=== PATIENT | female | born 1990 | race Caucasian/White ===

== ENCOUNTER 2017-09-01 09:11 | Inpatient (IN) | payer MEDICARE, OTHER ==
--- NOTE | 2017-09-01 09:57 | ED ---
General Adult HPI - General Chief complaint: Recheck/Abnormal Lab/Rx Stated complaint: Med Eval Time Seen by Provider: 09/01/17 09:16 Source: RN notes reviewed, Caregiver Mode of arrival: wheelchair Limitations: altered mental status, physical limitation - History of Present Illness Initial comments: This a 27-year-old female was cognitively impaired presents to emergency room with caregiver for evaluation of change in behavior. Caregiver states over the last 2 weeks she's had progressive decline in behavior, motor and speaking skills, along with difficulty in swallowing. Patient initially thought this was related to her Prolixin injection in which a started 2 weeks prior they discontinued it and switched to Clozaril. Did have still noticed progressive decline in her symptoms. They also noted that she had a urinary tract infection at time and was treated for it. She did have lab work drawn recently and but has had no results. Case is discussed with her PCP and psychiatrists who told him that if they felt she needed evaluation to bring her to the ER. Patient had no fevers or chills she has been coughing more than usual lately. They state that she cannot get up and ambulate any more like she used to that she is not talking at this point and she used to. They also stated that she is not swallowing her food though she isn't newly get food and fluids down the noticed that she is is holding her food in her mouth. She's had no vomiting no diarrhea no rashes noted. - Related Data Home Medications Medication Instructions Recorded Confirmed Divalproex ER [Depakote ER] 1,500 mg PO HS 09/01/17 09/01/17 LORazepam [Ativan] 1 mg PO QID 09/01/17 09/01/17 Lisinopril [Zestril] 5 mg PO HS@2100 09/01/17 09/01/17 Menthol [Biofreeze] 1 applic TOPICAL QID PRN 09/01/17 09/01/17 Trimethoprim 100 mg PO HS 09/01/17 09/01/17 cloZAPine [Clozaril] 50 mg PO HS 09/01/17 09/01/17 fluvoxaMINE [Luvox] 50 mg PO DAILY 09/01/17 09/01/17 Allergies Allergy/AdvReac Type Severity Reaction Status Date / Time antipsychotics AdvReac Severe Unknown Uncoded 01/23/16 00:08 Review of Systems ROS Statement: Those systems with pertinent positive or pertinent negative responses have been documented in the HPI. ROS Other: All systems not noted in ROS Statement are negative. Past Medical History Past Medical History: Unable to Obtain Additional Past Medical History / Comment(s): cognitive impairment, developmentally delayed, neuroleptic malignant syndrome, disruptive mood History of Any Multi-Drug Resistant Organisms: Unobtainable Past Surgical History: Unable to Obtain Past Psychological History: ADD/ADHD, Depression, Schizoaffective Disorder, Schizophrenia Smoking Status: Never smoker Past Alcohol Use History: None Reported Past Drug Use History: None Reported - Past Family History Mother History Unknown: Yes Family Medical History: Unable to Obtain Father History Unknown: Yes Family Medical History: Unable to Obtain General Exam Limitations: altered mental status, physical limitation General appearance: alert, in no apparent distress Head exam: Present: atraumatic, normocephalic, normal inspection Eye exam: Present: normal appearance, PERRL, EOMI. Absent: scleral icterus, conjunctival injection, periorbital swelling ENT exam: Present: normal exam, normal oropharynx, mucous membranes moist Neck exam: Present: normal inspection, full ROM. Absent: tenderness, meningismus, lymphadenopathy Respiratory exam: Present: normal lung sounds bilaterally. Absent: respiratory distress, wheezes, rales, rhonchi, stridor Cardiovascular Exam: Present: normal rhythm, tachycardia, normal heart sounds. Absent: systolic murmur, diastolic murmur, rubs, gallop, clicks GI/Abdominal exam: Present: soft, normal bowel sounds. Absent: distended, tenderness, guarding, rebound, rigid Back exam: Absent: CVA tenderness (R), CVA tenderness (L) Neurological exam: Present: alert. Absent: oriented X3 Skin exam: Present: warm, dry, intact, normal color. Absent: rash Course Vital Signs 09/01/17 09:12 Temperature 97.0 F L Pulse Rate 118 H Respiratory 20 Rate Blood Pressure 121/67 O2 Sat by Pulse 100 Oximetry Medical Decision Making - Medical Decision Making 27-year-old female presented for decline in mental and physical capacity. Patient's found to have bilateral pneumonia. Patient will be admitted to the hospital at this time. - Lab Data Result diagrams: 09/01/17 10:20 09/01/17 10:20 Lab Results 09/01/17 09/01/17 09/01/17 Range/Units 10:20 10:20 10:20 WBC 9.6 (3.8-10.6) k/uL RBC 4.14 (3.80-5.40) m/uL Hgb 13.4 (11.4-16.0) gm/dL Hct 39.8 (34.0-46.0) % MCV 96.0 (80.0-100.0) fL MCH 32.4 (25.0-35.0) pg MCHC 33.7 (31.0-37.0) g/dL RDW 12.7 (11.5-15.5) % Plt Count 202 (150-450) k/uL Neutrophils % 76 % Lymphocytes % 15 % Monocytes % 8 % Eosinophils % 0 % Basophils % 0 % Neutrophils # 7.3 (1.3-7.7) k/uL Lymphocytes # 1.4 (1.0-4.8) k/uL Monocytes # 0.8 (0-1.0) k/uL Eosinophils # 0.0 (0-0.7) k/uL Basophils # 0.0 (0-0.2) k/uL ESR Cancelled PT (9.0-12.0) sec INR (<1.2) APTT (22.0-30.0) sec Sodium 138 (137-145) mmol/L Potassium 4.7 (3.5-5.1) mmol/L Chloride 101 (98-107) mmol/L Carbon Dioxide 20 L (22-30) mmol/L Anion Gap 17 mmol/L BUN 10 (7-17) mg/dL Creatinine 0.54 (0.52-1.04) mg/dL Est GFR (CKD-EPI)AfAm >90 (>60 ml/min/1.73 sqM) Est GFR (CKD-EPI)NonAf >90 (>60 ml/min/1.73 sqM) Glucose 147 H (74-99) mg/dL Calcium 9.5 (8.4-10.2) mg/dL Magnesium 2.0 (1.6-2.3) mg/dL Total Bilirubin 0.5 (0.2-1.3) mg/dL AST 68 H (14-36) U/L ALT 79 H (9-52) U/L Alkaline Phosphatase 99 (38-126) U/L Ammonia (<30) umol/L Total Creatine Kinase 57 (30-135) U/L CK-MB (CK-2) 0.3 (0.0-2.4) ng/mL CK-MB (CK-2) Rel Index 0.5 Troponin I <0.012 (0.000-0.034) ng/mL C-Reactive Protein 61.5 H (<10.0) mg/L Total Protein 6.8 (6.3-8.2) g/dL Albumin 3.9 (3.5-5.0) g/dL Lipase 81 (23-300) U/L Urine Color Urine Appearance (Clear) Urine pH (5.0-8.0) Ur Specific [place] (1.001-1.035) Urine Protein (Negative) Urine Glucose (UA) (Negative) Urine Ketones (Negative) Urine Blood (Negative) Urine Nitrite (Negative) Urine Bilirubin (Negative) Urine Urobilinogen (<2.0) mg/dL Ur Leukocyte Esterase (Negative) Urine RBC (0-5) /hpf Urine WBC (0-5) /hpf Ur Squamous Epith Cells (0-4) /hpf Urine Mucus (None) /hpf 09/01/17 09/01/17 09/01/17 Range/Units 10:20 10:20 11:50 WBC (3.8-10.6) k/uL RBC (3.80-5.40) m/uL Hgb (11.4-16.0) gm/dL Hct (34.0-46.0) % MCV (80.0-100.0) fL MCH (25.0-35.0) pg MCHC (31.0-37.0) g/dL RDW (11.5-15.5) % Plt Count (150-450) k/uL Neutrophils % % Lymphocytes % % Monocytes % % Eosinophils % % Basophils % % Neutrophils # (1.3-7.7) k/uL Lymphocytes # (1.0-4.8) k/uL Monocytes # (0-1.0) k/uL Eosinophils # (0-0.7) k/uL Basophils # (0-0.2) k/uL ESR PT 11.5 (9.0-12.0) sec INR 1.2 H (<1.2) APTT 19.7 L (22.0-30.0) sec Sodium (137-145) mmol/L Potassium (3.5-5.1) mmol/L Chloride (98-107) mmol/L Carbon Dioxide (22-30) mmol/L Anion Gap mmol/L BUN (7-17) mg/dL Creatinine (0.52-1.04) mg/dL Est GFR (CKD-EPI)AfAm (>60 ml/min/1.73 sqM) Est GFR (CKD-EPI)NonAf (>60 ml/min/1.73 sqM) Glucose (74-99) mg/dL Calcium (8.4-10.2) mg/dL Magnesium (1.6-2.3) mg/dL Total Bilirubin (0.2-1.3) mg/dL AST (14-36) U/L ALT (9-52) U/L Alkaline Phosphatase (38-126) U/L Ammonia 13 (<30) umol/L Total Creatine Kinase (30-135) U/L CK-MB (CK-2) (0.0-2.4) ng/mL CK-MB (CK-2) Rel Index Troponin I (0.000-0.034) ng/mL C-Reactive Protein (<10.0) mg/L Total Protein (6.3-8.2) g/dL Albumin (3.5-5.0) g/dL Lipase (23-300) U/L Urine Color Light Yellow Urine Appearance Clear (Clear) Urine pH 7.0 (5.0-8.0) Ur Specific [place] 1.008 (1.001-1.035) Urine Protein Negative (Negative) Urine Glucose (UA) Negative (Negative) Urine Ketones Negative (Negative) Urine Blood Small H (Negative) Urine Nitrite Negative (Negative) Urine Bilirubin Negative (Negative) Urine Urobilinogen <2.0 (<2.0) mg/dL Ur Leukocyte Esterase Negative (Negative) Urine RBC 1 (0-5) /hpf Urine WBC 1 (0-5) /hpf Ur Squamous Epith Cells 1 (0-4) /hpf Urine Mucus Rare H (None) /hpf Disposition Clinical Impression: Bilateral pneumonia Disposition: ADMITTED IP TO THIS HOSP Condition: Stable Referrals: Adrianna Deng MD [Primary Care Provider] - 1-2 days
[2017-09-01 10:43] LABS: Basophils % (A) 0 %; Eosinophils % (A) 0 %; HCT 39.8 % (34.0-46.0); HGB 13.4 gm/dL (11.4-16.0); Lymphocytes # (A) 1.4 k/uL (1.0-4.8); Lymphocytes % (A) 15 %; MCH 32.4 pg (25.0-35.0); MCHC 33.7 g/dL (31.0-37.0); Mean Platelet Volume 7.5; Monocytes # (A) 0.8 k/uL (0-1.0); Monocytes % (A) 8 %; Neutrophils # (A) 7.3 k/uL (1.3-7.7); Neutrophils % (A) 76 %; Platelet Count 202 k/uL (150-450); RBC 4.14 m/uL (3.80-5.40); RDW 12.7 % (11.5-15.5); WBC 9.6 k/uL (3.8-10.6)
[2017-09-01 10:51] LABS: ALT 79 U/L (9-52); AST 68 U/L (14-36); Albumin 3.9 g/dL (3.5-5.0); Alkaline Phosphatase 99 U/L (38-126); Anion Gap 17 mmol/L; Blood Urea Nitrogen 10 mg/dL (7-17); C Reactive Protein 61.5 mg/L (<10.0); Calcium 9.5 mg/dL (8.4-10.2); Carbon Dioxide 20 mmol/L (22-30); Chloride 101 mmol/L (98-107); Glucose 147 mg/dL (74-99); Lipase 81 U/L (23-300); Potassium 4.7 mmol/L (3.5-5.1); Sodium 138 mmol/L (137-145); Total Bilirubin 0.5 mg/dL (0.2-1.3); Total Protein 6.8 g/dL (6.3-8.2)
[2017-09-01 10:53] LABS: INR 1.2 (<1.2); Prothrombin Time 11.5 sec (9.0-12.0)
[2017-09-01 11:00] LABS: Partial Thromboplastin Time 19.7 sec (22.0-30.0)
--- NOTE | 2017-09-01 11:21 | CT ---
EXAMINATION TYPE: CT brain wo con DATE OF EXAM: 09/01/2017 COMPARISON: NONE HISTORY: Patient complains of whole body tremors, whole body weakness, and shows signs of altered men selena status. CT DLP: 786.3 mGycm. Automated Exposure Control for Dose Reduction was Utilized. TECHNIQUE: CT scan of the head is performed without contrast. FINDINGS: There is no acute intracranial hemorrhage, mass effect, or midline shift identified. The ventricles and sulci are within normal limits in size. The globes are intact and the visualized sin uses are clear. IMPRESSION: No acute intracranial hemorrhage, mass effect, or midline shift is seen. Correlate with MRI as clinically warranted.
[2017-09-01 11:28] LABS: Creatine Kinase 57 U/L (30-135)
--- NOTE | 2017-09-01 11:31 | XR ---
EXAMINATION TYPE: XR chest 2V DATE OF EXAM: 09/01/2017 COMPARISON: NONE TECHNIQUE: PA and lateral views submitted. HISTORY: Not feeling well FINDINGS: Vague patchy infiltrates in the perihilar lower lobe areas bilaterally with prominence of the interst itium. No obvious pneumothorax. Heart size normal. Limited inspiration may account for similar findin g.. IMPRESSION: 1. Patchy bilateral perihilar and lower lobe interstitial prominence could be associated with interst itial pneumonitis or pneumonia. Atypical pneumonia in the differential diagnosis. Venous congestion f elt less likely correlate clinically.
[2017-09-01 11:41] LABS: Creatine Kinase MB 0.3 ng/mL (0.0-2.4); Troponin I <0.012 ng/mL (0.000-0.034)
[2017-09-01 12:07] LABS: Appearance,Urine Clear (Clear); Bilirubin,Urine Negative (Negative); Blood,Urine Small (Negative); Color,Urine Light Yellow; Glucose,Urine (UA) Negative (Negative); Ketones,Urine Negative (Negative); Leukocyte Esterase,Urine Negative (Negative); Mucus,Urine Rare /hpf; Nitrite,Urine Negative (Negative); Protein,Urine Negative (Negative); RBC,Urine 1 /hpf (0-5); Specific Gravity,Urine 1.008 (1.001-1.035); Squamous Epithelial Cell,Urine 1 /hpf (0-4); Urobilinogen,Urine <2.0 mg/dL (<2.0); WBC,Urine 1 /hpf (0-5)
[2017-09-01] MEDS ORDERED: PNEUMONIA PROTOCOL UTILIZED 1 EACH MISC PO PRN (13:08)
[2017-09-01] MEDS ORDERED: PIPERACILLIN-TAZOBACTAM 3.375 GM in DEXTROSE/WATER 1 50ML.BAG IVPB STA (13:08)
[2017-09-01] MEDS ORDERED: LEVOFLOXACIN 750MG-D5W PMX 750 MG in DEXTROSE/WATER 1 150ML.BAG IVPB STA (13:08)
[2017-09-01] MEDS ORDERED: METHYL SALICYLATE/MENTHOL CREAM 5 OZ TOPICAL PRN (13:09)
[2017-09-01] MEDS ORDERED: LORazepam 1 MG TAB PO STA (14:03)
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
[2017-09-01] MEDS: LORazepam 1 MG TAB PO SCH ×2 (18:45→22:26)
[2017-09-01] MEDS ORDERED: DIVALPROEX ER 500 MG TAB.ER.24H PO SCH (21:00)
[2017-09-01] MEDS: SODIUM CHLORIDE 0.9% 1,000 ML IV SCH (22:18)
[2017-09-01] MEDS: cloZAPine 25 MG TAB PO SCH (22:26)
[2017-09-01] MEDS: LISINOPRIL 5 MG TAB PO SCH (22:26)
[2017-09-01] MEDS: ACETAMINOPHEN TAB 325 MG TAB PO PRN (23:03)
[2017-09-01] MEDS: PIPERACILLIN-TAZOBACTAM 3.375 GM in DEXTROSE/WATER 1 50ML.BAG IVPB SCH (23:33)
[2017-09-02] MEDS: SODIUM CHLORIDE 0.9% 1,000 ML IV SCH ×3 (06:34→21:23)
--- NOTE | 2017-09-02 07:36 | XR ---
EXAMINATION TYPE: XR chest 2V DATE OF EXAM: 09/02/2017 COMPARISON: 09/01/2017 HISTORY: Chest pain TECHNIQUE: Frontal and lateral views of the chest are obtained. FINDINGS: Linear atelectasis left perihilar region. Mild patchy density left lower lobe may reflect additional atelectasis and/or infiltrate. No evidence for pneumothorax. No pleural effusion. The cardiac silhouette size is within normal limits. The osseous structures are grossly intact. IMPRESSION: 1. Linear atelectasis left perihilar region. Mild patchy density left lower lobe may reflect additio nal atelectasis and/or infiltrate.
[2017-09-02 07:50] LABS: HCT 39.4 % (34.0-46.0); HGB 12.9 gm/dL (11.4-16.0); MCH 31.6 pg (25.0-35.0); MCHC 32.7 g/dL (31.0-37.0); MCV 96.4 fL (80.0-100.0); Mean Platelet Volume 7.7; Platelet Count 227 k/uL (150-450); RBC 4.08 m/uL (3.80-5.40); RDW 12.8 % (11.5-15.5); WBC 8.2 k/uL (3.8-10.6)
[2017-09-02] MEDS: LORazepam 1 MG TAB PO SCH ×4 (07:59→21:51)
[2017-09-02] MEDS: PIPERACILLIN-TAZOBACTAM 3.375 GM in DEXTROSE/WATER 1 50ML.BAG IVPB SCH ×2 (07:59→17:03)
[2017-09-02 08:12] LABS: Anion Gap 15 mmol/L; Blood Urea Nitrogen 7 mg/dL (7-17); Carbon Dioxide 20 mmol/L (22-30); Chloride 106 mmol/L (98-107); Glucose 105 mg/dL (74-99); Sodium 141 mmol/L (137-145)
[2017-09-02 08:13] LABS: Potassium 4.2 mmol/L (3.5-5.1)
--- NOTE | 2017-09-02 11:08 | P.PN ---
Subjective 27-year-old female admitted for lethargy aspiration patient is Zosyn patient has toxic levels of Depakote and Depakote and repeat levels will be obtained today patient is excessively drowsy and sleepy because of Ativan she is receiving. Psychiatric was consulted I'll let psychiatric titrate these medications. Patient was having significant side effects from her psychiatric medications. Review of systems: I'm unable to obtain. Objective - Vital Signs Vital signs: Vital Signs Temp 98.4 F 09/02/17 07:38 Pulse 104 H 09/02/17 07:38 Resp 18 09/02/17 07:38 BP 126/73 09/02/17 07:38 Pulse Ox 97 09/02/17 07:38 Intake & Output 09/01/17 09/02/17 09/02/17 18:59 06:59 18:59 Intake Total 250 Balance 250 Weight 142.428 kg Intake: Intake, IV Titration 250 Amount Sodium Chloride 0.9% 1, 250 000 ml @ 100 mls/hr IV . Q10H [facility] Rx#:[id number] Other: Voiding Method Toilet Toilet Diaper Incontinent # Voids 2 - Exam PHYSICAL EXAMINATION: GENERAL: The patient is nonverbal drowsy and sleepy HEENT: Pupils are round and equally reacting to light. EOMI. No scleral icterus. No conjunctival pallor. Normocephalic, atraumatic. No pharyngeal erythema. No thyromegaly. CARDIOVASCULAR: S1 and S2 present. No murmurs, rubs, or gallops. PULMONARY: Diminished breath sounds no wheezing or crackles were appreciated ABDOMEN: Soft, nontender, nondistended, normoactive bowel sounds. No palpable organomegaly. MUSCULOSKELETAL: No joint swelling or deformity. EXTREMITIES: No cyanosis, clubbing, or pedal edema. NEUROLOGICAL: Drowsy and sleepy does not appear to have any focal deficits which are new SKIN: No rashes. - Labs CBC & Chem 7: 09/02/17 07:28 09/02/17 07:28 Labs: Abnormal Lab Results - Last 24 Hours (Table) 09/01/17 09/01/17 09/01/17 Range/Units 10:20 10:20 10:20 INR 1.2 H (<1.2) APTT 19.7 L (22.0-30.0) sec Carbon Dioxide 20 L (22-30) mmol/L Creatinine (0.52-1.04) mg/dL Glucose 147 H (74-99) mg/dL AST 68 H (14-36) U/L ALT 79 H (9-52) U/L C-Reactive Protein 61.5 H (<10.0) mg/L Urine Blood (Negative) Urine Mucus (None) /hpf Valproic Acid 112.7 H* ug/mL 09/01/17 09/02/17 Range/Units 11:50 07:28 INR (<1.2) APTT (22.0-30.0) sec Carbon Dioxide 20 L (22-30) mmol/L Creatinine 0.45 L (0.52-1.04) mg/dL Glucose 105 H (74-99) mg/dL AST (14-36) U/L ALT (9-52) U/L C-Reactive Protein (<10.0) mg/L Urine Blood Small H (Negative) Urine Mucus Rare H (None) /hpf Valproic Acid ug/mL Assessment and Plan Plan: Possible valproic acid toxicity: Patient is on valproic acid for her mental health issues valproic acid will be held and patient was started on IV fluids and will consult psychiatry as mentioned above. -Possible aspiration: Possibility of aspiration pneumonitis will continue antibiotics for today will not require antibiotics upon discharge she probably has chemical pneumonitis. Patient will be nothing by mouth until speech therapy evaluation and formal bedside swallow evaluation -Developmental delay and mental retardation -Hypertension continue with lisinopril -Schizoaffective disorder
[2017-09-02] MEDS ORDERED: LEVOFLOXACIN 750MG-D5W PMX 750 MG in DEXTROSE/WATER 1 150ML.BAG IVPB SCH (14:00)
--- NOTE | 2017-09-02 15:19 | P.CN ---
Psychiatric Consult - . Consult date: 09/02/17 Consult:: 09/02/17 14:53 Identification: Patient is a 27-year-old female who was brought into the emergency room from the [facility] due to a change in her behavior. Reason for Consult: Medication management History of Present Illness: Patient's chart was reviewed, patient was interviewed there were no family members present. Patient's care was reviewed with the [facility] liaison. Patient was last on our psychiatric unit in 2015 and most of the information from this evaluation is obtained from that. Per the records from [facility] patient had been placed on Prolixin decanoate, the dose was increased to 50 mg on June 14 and was given every 2 weeks for last injection being given on 08/09/2017, I am unaware of why it was not continued and she was begun on Clozaril 25 mg for one week increase to 50 mg. Patient was also on Luvox 50 mg and is unclear to me when this was begun. Patient was also on Depakote 1500 mg of extended release and I do not know when this was begun either. Patient was also on Ativan 1 mg 4 times a day. Patient is a poor historian she is unable to give me any historical information or participate in the evaluation and has a diagnosis per [facility] unspecified schizophrenia spectrum and other psychotic disorder, intellectual disability, mild. Patient has a guardian and is living in an [facility]. Pertinent admission in 2015 to our psychiatric unit the patient had a history of intellectual disability as well as disruptive mood and had been placed on multiple antipsychotics in the past with a history of neuroleptic malignant syndrome, the details of this I am unaware of. Patient on her last admission in 2015 was discharged on Trileptal and Ativan. Patient is followed by [facility] in [facility]. Past Psychiatric History: Patient has 2 prior psychiatric admissions to this hospital, I am unaware of any other admissions. Patient most recent medications of been Ativan 1 mg 4 times a day, Clozaril 50 mg at bedtime, Depakote extended release 1500 mg at bedtime and Luvox 50 mg every morning. Patient had been on Prolixin long-acting injectable last dose given on August 09. Past Medical/Surgical History: Patient unable to give me a history Family History: Unable to obtain Social History: Patient lives in a retirement, [facility], further information regarding her social history is unavailable. Substance Use History: Unable to obtain Legal History: Unable to obtain Mental status: Appearance/Attitude: Patient is lying in a hospital bed, holding 2 stuffed animals and watching television, she makes eye contact Behavior: Patient is not exhibiting any psychomotor agitation or retardation Speech/Language: Patient responded to some questions with brief 1 or 2 word answers, she spoke in a very soft voice Thought Process: Unable to assess as the patient responded to only several questions with 1 or 2 word answers Thought Content: Unable to assess Suicidal/Homicidal Ideation: Unable to assess Sensorium/Cognition: Patient responded to her name, she was alert, further testing was not performed, patient has a history of intellectual disability, mild Mood/Affect: Patient did not appear agitated, she was smiling Insight/Judgment: unable to assess Assessment: patient was brought to the hospital from the [facility] where she has been residing with a report of a UTI that he been treated as well as 2 week change in her behavior. They report over 2 weeks a decrease in her ability to swallow and eat or drink, a decrease in her ability to ambulate as well as she stopped talking. Patient is unable to give a history responding to some of my questions with 1 or 2 word answers, these were in relation to the stuffed animals that she had with her, the rest of the history is obtained from the medical record and from speaking with the [facility] liaison regarding her most recent medications. Patient is noted in the chart to have had a history of neuroleptic malignant syndrome I am unaware of the details or how or when this was diagnosed. Patient was most recently on Clozaril 50 mg but that had just been started, she prior to this was on Prolixin decanoate 50 mg every 2 weeks her last injection on August 09. Patient was also taking Luvox and Depakote. Luvox can certainly increase Depakote levels as her Depakote level on admission was elevated. There is no evidence of an elevation in her CPK and she does does not have a persistently elevated temperature so I do not feel that neuroleptic malignant syndrome is the cause of her most recent behavioral changes. It is unclear to me if the difficulties that she had with her swallowing, motor skills may have been secondary to side effects from the Prolixin. Clozaril is less likely to cause extrapyramidal or dystonic symptoms , and patients who have had a history of neuroleptic malignant syndrome can be started on this medication at low doses and titrated in a very slow fashion. Patient did not exhibit any aggressive or agitated behavior when I spoke with her, per the record the patient did eat her lunch without assistance. Diagnosis: Unspecified psychotic disorder, intellectual disability, mild per history Plan: I would agree with discontinuing the Depakote, she can continue on Clozaril 50 mg at bedtime, Luvox 50 mg in the morning and the Ativan 1 mg 4 times a day, patient should return to [facility] to be assessed by the psychiatrist there to see if any further adjustments in her medications need to be made after she is discharged. I see no need to add any other medications at this time nor do I see a need to increase the Clozaril or the Luvox dose. Patient does not require an inpatient psychiatric admission. I will sign off the case, I would recommend that the patient on discharge have an appointment as soon as possible with the psychiatrist at [facility] to assess whether her medications need further adjustment or not. On discharge the patient can certainly return to her prior living situation, [facility]. If there are any further questions or concerns please don't hesitate to contact me. 09/02/17 14:54 09/02/17 15:04 09/02/17 15:06 09/02/17 15:12 09/02/17 15:14
[2017-09-02] MEDS: HEPARIN SODIUM,PORCINE 5,000 UNIT/ML 1 ML VIAL SQ SCH ×2 (17:13→23:56)
[2017-09-02] MEDS: cloZAPine 25 MG TAB PO SCH (20:01)
[2017-09-02] MEDS: LISINOPRIL 5 MG TAB PO SCH (20:01)
[2017-09-03] MEDS: ACETAMINOPHEN TAB 325 MG TAB PO PRN (00:08)
[2017-09-03] MEDS: SODIUM CHLORIDE 0.9% 1,000 ML IV SCH ×2 (08:26→20:06)
[2017-09-03] MEDS: HEPARIN SODIUM,PORCINE 5,000 UNIT/ML 1 ML VIAL SQ SCH ×2 (08:34→17:54)
[2017-09-03] MEDS: LORazepam 1 MG TAB PO SCH ×4 (08:34→21:38)
[2017-09-03] MEDS: AMOXIC-POT CLAV 875-125MG 1 EACH TAB PO SCH ×2 (11:35→20:08)
--- NOTE | 2017-09-03 14:29 | P.PN ---
Subjective 27-year-old female admitted for lethargy aspiration patient is Zosyn patient has toxic levels of Depakote and Depakote and repeat levels will be obtained today patient is excessively drowsy and sleepy because of Ativan she is receiving. Psychiatric was consulted I'll let psychiatric titrate these medications. Patient was having significant side effects from her psychiatric medications. 09/03/2017 Patient is a much less lethargic does have much most and but failed bedside swallow eval. Patient did a low-grade fever and tachycardic because of which patient was started on Augmentin oral patient can take oral medications, honey thickened liquids Review of systems: I'm unable to obtain. Objective - Vital Signs Vital signs: Vital Signs Temp 99.9 F H 09/03/17 07:10 Pulse 119 H 09/03/17 07:10 Resp 20 09/03/17 07:10 BP 159/81 09/03/17 07:10 Pulse Ox 96 09/03/17 07:10 Intake & Output 09/02/17 09/03/17 09/03/17 18:59 06:59 18:59 Intake Total 850 1660 Balance 850 1660 Weight 142.428 kg Intake: Intake, IV Titration 850 Amount Piperacillin-Tazobactam 3 50 .375 gm In Dextrose/Water 1 50ml.bag @ 12.5 mls/hr IVPB Q8HR CORKY Rx#: [id number] Sodium Chloride 0.9% 1, 800 000 ml @ 100 mls/hr IV . Q10H CORKY Rx#:[id number] Oral 1660 Other: Voiding Method Toilet Toilet Diaper Diaper Incontinent Incontinent # Voids 2 - Exam PHYSICAL EXAMINATION: GENERAL: patient is much less lethargic HEENT: Pupils are round and equally reacting to light. EOMI. No scleral icterus. No conjunctival pallor. Normocephalic, atraumatic. No pharyngeal erythema. No thyromegaly. CARDIOVASCULAR: S1 and S2 present. No murmurs, rubs, or gallops. PULMONARY: Diminished breath sounds no wheezing or crackles were appreciated ABDOMEN: Soft, nontender, nondistended, normoactive bowel sounds. No palpable organomegaly. MUSCULOSKELETAL: No joint swelling or deformity. EXTREMITIES: No cyanosis, clubbing, or pedal edema. NEUROLOGICAL: Drowsy and sleepy does not appear to have any focal deficits which are new SKIN: No rashes. - Labs CBC & Chem 7: 09/02/17 07:28 09/02/17 07:28 Labs: Microbiology - Last 24 Hours (Table) 09/01/17 18:20 Blood Culture - Preliminary Blood No Growth after 24 hours 09/01/17 17:40 Blood Culture - Preliminary Blood No Growth after 24 hours Assessment and Plan Plan: Possible valproic acid toxicity: patient's valproic acid levels came down still be tired and lethargic much improved compared to admission and appreciate psychiatric recommendations. -Possible aspiration: Possibility of aspiration pneumonitis , because of low- grade fever and tachycardia patient will be started on antibiotics Development delay and mental retardation -Hypertension continue with lisinopril -Schizoaffective disorder
[2017-09-03 14:39] LABS: Glucose,Whole Blood 151 mg/dL (75-99)
--- NOTE | 2017-09-03 15:34 | XR ---
EXAMINATION TYPE: XR chest 1V portable DATE OF EXAM: 09/03/2017 COMPARISON: 09/02/2017 HISTORY: Chest pain TECHNIQUE: Single frontal view of the chest is obtained. FINDINGS: Resolution discoid atelectasis left perihilar region. Increased patchy density right lower lobe may r eflect developing infiltrate. The cardiac silhouette size is within normal limits. The osseous structures are intact. IMPRESSION: 1. Resolution discoid atelectasis left perihilar region. Increased patchy density right lower lobe m ay reflect developing infiltrate.
[2017-09-03 15:54] LABS: Appearance,Urine Clear (Clear); Bilirubin,Urine Negative (Negative); Blood,Urine Small (Negative); Color,Urine Yellow; Glucose,Urine (UA) Negative (Negative); Ketones,Urine Negative (Negative); Leukocyte Esterase,Urine Trace (Negative); Mucus,Urine Rare /hpf; Nitrite,Urine Negative (Negative); PH, Urine 6.5 (5.0-8.0); Protein,Urine Negative (Negative); RBC,Urine 2 /hpf (0-5); Specific Gravity,Urine 1.014 (1.001-1.035); Squamous Epithelial Cell,Urine 6 /hpf (0-4); WBC,Urine 1 /hpf (0-5)
[2017-09-03] MEDS: cloZAPine 25 MG TAB PO SCH (20:08)
[2017-09-03] MEDS: LISINOPRIL 5 MG TAB PO SCH (20:08)
[2017-09-04] MEDS: SODIUM CHLORIDE 0.9% 1,000 ML IV SCH ×2 (00:17→08:14)
[2017-09-04] MEDS: HEPARIN SODIUM,PORCINE 5,000 UNIT/ML 1 ML VIAL SQ SCH ×4 (00:17→23:24)
[2017-09-04] MEDS: ACETAMINOPHEN TAB 325 MG TAB PO PRN ×2 (06:04→22:26)
[2017-09-04] MEDS: LORazepam 1 MG TAB PO SCH (08:14)
[2017-09-04] MEDS: AMOXIC-POT CLAV 875-125MG 1 EACH TAB PO SCH ×2 (08:14→20:28)
--- NOTE | 2017-09-04 09:18 | P.PN ---
Subjective 27-year-old female admitted for lethargy aspiration patient is Zosyn patient has toxic levels of Depakote and Depakote and repeat levels will be obtained today patient is excessively drowsy and sleepy because of Ativan she is receiving. Psychiatric was consulted I'll let psychiatric titrate these medications. Patient was having significant side effects from her psychiatric medications. 09/03/2017 Patient is a much less lethargic does have much most and but failed bedside swallow eval. Patient did a low-grade fever and tachycardic because of which patient was started on Augmentin oral patient can take oral medications, honey thickened liquids 09/04/2017 Patient is excessively drowsy because of the scheduled Ativan which will be made when necessary, when patient is more awake we'll do the swallow evaluation. Review of systems: I'm unable to obtain. Objective - Vital Signs Vital signs: Vital Signs Temp 99.7 F H 09/04/17 06:55 Pulse 121 H 09/04/17 06:55 Resp 20 09/04/17 06:55 BP 119/58 09/04/17 06:55 Pulse Ox 95 09/04/17 06:55 Intake & Output 09/03/17 09/04/17 09/04/17 18:59 06:59 18:59 Intake Total 640 Balance 640 Weight 142.428 kg Intake: Oral 640 Other: Voiding Method Toilet Toilet Toilet Diaper Diaper Diaper Incontinent Incontinent Incontinent # Voids 2 2 - Exam PHYSICAL EXAMINATION: GENERAL: patient is much less lethargic HEENT: Pupils are round and equally reacting to light. EOMI. No scleral icterus. No conjunctival pallor. Normocephalic, atraumatic. No pharyngeal erythema. No thyromegaly. CARDIOVASCULAR: S1 and S2 present. No murmurs, rubs, or gallops. PULMONARY: Diminished breath sounds basilar crackles ABDOMEN: Soft, nontender, nondistended, normoactive bowel sounds. No palpable organomegaly. MUSCULOSKELETAL: No joint swelling or deformity. EXTREMITIES: No cyanosis, clubbing, or pedal edema. NEUROLOGICAL: Drowsy and sleepy does not appear to have any focal deficits which are new SKIN: No rashes. - Labs CBC & Chem 7: 09/02/17 07:28 09/02/17 07:28 Labs: Abnormal Lab Results - Last 24 Hours (Table) 09/03/17 09/03/17 Range/Units 14:37 15:15 POC Glucose (mg/dL) 151 H (75-99) mg/dL Urine Blood Small H (Negative) Ur Leukocyte Esterase Trace H (Negative) Ur Squamous Epith Cells 6 H (0-4) /hpf Urine Mucus Rare H (None) /hpf Microbiology - Last 24 Hours (Table) 09/01/17 18:20 Blood Culture - Preliminary Blood No Growth after 48 hours 09/01/17 17:40 Blood Culture - Preliminary Blood No Growth after 48 hours Assessment and Plan Plan: Possible valproic acid toxicity: patient's valproic acid levels came down still be tired and lethargic much improved compared to admission and appreciate psychiatric recommendations. Ativan will be made when necessary -Possible aspiration: Possibility of aspiration pneumonitis , because of low- grade fever and tachycardia patient is started on Augmentin Development delay and mental retardation -Hypertension continue with lisinopril -Schizoaffective disorder
[2017-09-04] MEDS: LORazepam 1 MG TAB PO PRN (16:05)
[2017-09-04] MEDS: LISINOPRIL 5 MG TAB PO SCH (20:28)
[2017-09-04] MEDS: cloZAPine 25 MG TAB PO SCH (20:28)
[2017-09-05] MEDS: SODIUM CHLORIDE 0.9% 1,000 ML IV SCH ×3 (02:47→20:30)
[2017-09-05] MEDS: LORazepam 1 MG TAB PO PRN (07:04)
[2017-09-05] MEDS: AMOXIC-POT CLAV 875-125MG 1 EACH TAB PO SCH ×2 (08:31→20:04)
[2017-09-05] MEDS: HEPARIN SODIUM,PORCINE 5,000 UNIT/ML 1 ML VIAL SQ SCH ×2 (08:31→16:31)
--- NOTE | 2017-09-05 10:16 | P.PN ---
Subjective 27-year-old female admitted for lethargy aspiration patient is Zosyn patient has toxic levels of Depakote and Depakote and repeat levels will be obtained today patient is excessively drowsy and sleepy because of Ativan she is receiving. Psychiatric was consulted I'll let psychiatric titrate these medications. Patient was having significant side effects from her psychiatric medications. 09/03/2017 Patient is a much less lethargic does have much most and but failed bedside swallow eval. Patient did a low-grade fever and tachycardic because of which patient was started on Augmentin oral patient can take oral medications, honey thickened liquids 09/04/2017 Patient is excessively drowsy because of the scheduled Ativan which will be made when necessary, when patient is more awake we'll do the swallow evaluation. 09/05/2017 Patient remains tachycardic will obtain EKG, TSH and d-dimer and if patient remains otalgic unsure of the etiology patient doesn't appear to be septic. D- dimer is elevated will obtain computed tomography scan of the chest to rule out pulmonary embolism. Patient probably can be discharged tomorrow to back to her assisted living of all the workup is negative. Review of systems: I'm unable to obtain. Objective - Vital Signs Vital signs: Vital Signs Temp 98.8 F 09/05/17 08:05 Pulse 137 H 09/05/17 08:05 Resp 26 H 09/05/17 08:05 BP 133/103 09/05/17 08:05 Pulse Ox 99 09/05/17 08:05 Intake & Output 09/04/17 09/05/17 09/05/17 18:59 06:59 18:59 Other: Voiding Method Toilet Toilet Diaper Diaper Incontinent Incontinent # Voids 3 1 1 - Exam PHYSICAL EXAMINATION: GENERAL: patient is much less lethargic HEENT: Pupils are round and equally reacting to light. EOMI. No scleral icterus. No conjunctival pallor. Normocephalic, atraumatic. No pharyngeal erythema. No thyromegaly. CARDIOVASCULAR: S1 and S2 present. No murmurs, rubs, or gallops. PULMONARY: Diminished breath sounds basilar crackles ABDOMEN: Soft, nontender, nondistended, normoactive bowel sounds. No palpable organomegaly. MUSCULOSKELETAL: No joint swelling or deformity. EXTREMITIES: No cyanosis, clubbing, or pedal edema. NEUROLOGICAL: Drowsy and sleepy does not appear to have any focal deficits which are new SKIN: No rashes. - Labs CBC & Chem 7: 09/02/17 07:28 09/02/17 07:28 Labs: Microbiology - Last 24 Hours (Table) 09/01/17 18:20 Blood Culture - Preliminary Blood No Growth after 72 hours 09/01/17 17:40 Blood Culture - Preliminary Blood No Growth after 72 hours Assessment and Plan Plan: Possible valproic acid toxicity: patient's valproic acid levels came down still be tired and lethargic much improved compared to admission and appreciate psychiatric recommendations. Ativan will be made when necessary -Possible aspiration: Possibility of aspiration pneumonitis , because of low- grade fever and tachycardia patient is started on Augmentin Development delay and mental retardation -Hypertension continue with lisinopril -Schizoaffective disorder -Tachycardia: Appears to be sinus, will obtain a TSH and d-dimer.
[2017-09-05 10:28] LABS: Basophils % (A) 0 %; Eosinophils % (A) 0 %; HCT 37.4 % (34.0-46.0); HGB 12.2 gm/dL (11.4-16.0); Lymphocytes # (A) 1.8 k/uL (1.0-4.8); Lymphocytes % (A) 15 %; MCH 31.8 pg (25.0-35.0); MCHC 32.5 g/dL (31.0-37.0); MCV 97.8 fL (80.0-100.0); Mean Platelet Volume 7.2; Monocytes # (A) 0.7 k/uL (0-1.0); Monocytes % (A) 5 %; Neutrophils # (A) 9.7 k/uL (1.3-7.7); Neutrophils % (A) 79 %; Platelet Count 213 k/uL (150-450); RBC 3.82 m/uL (3.80-5.40); RDW 12.8 % (11.5-15.5); WBC 12.4 k/uL (3.8-10.6)
[2017-09-05 11:28] LABS: T4, Free (Free Thyroxine) 1.41 ng/dL (0.78-2.19)
[2017-09-05] MEDS: LISINOPRIL 5 MG TAB PO SCH (20:04)
[2017-09-05] MEDS: cloZAPine 25 MG TAB PO SCH (20:04)
[2017-09-05 22:40] VITALS: RESP 16
[2017-09-06] MEDS: SODIUM CHLORIDE 0.9% 1,000 ML IV SCH ×2 (00:01→16:58)
[2017-09-06] MEDS: HEPARIN SODIUM,PORCINE 5,000 UNIT/ML 1 ML VIAL SQ SCH ×3 (00:01→16:58)
[2017-09-06 07:49] LABS: Anion Gap 13 mmol/L; Blood Urea Nitrogen 8 mg/dL (7-17); Calcium 9.2 mg/dL (8.4-10.2); Carbon Dioxide 23 mmol/L (22-30); Chloride 104 mmol/L (98-107); Glucose 104 mg/dL (74-99); Potassium 4.4 mmol/L (3.5-5.1); Sodium 140 mmol/L (137-145)
[2017-09-06] MEDS: AMOXIC-POT CLAV 875-125MG 1 EACH TAB PO SCH ×2 (07:49→17:42)
[2017-09-06 08:23] VITALS: BP 111/69; PULSE 121; TEMP 98.8
--- NOTE | 2017-09-08 07:32 | DS ---
DISCHARGE SUMMARY DATE OF ADMISSION: September 01, 2017. DATE OF DISCHARGE: September 06, 2017. FINAL DIAGNOSES: 1. Acute metabolic encephalopathy, probably from valproic acid toxicity. 2. Aspiration pneumonitis probably chemical. 3. Developmental delay. 4. Essential hypertension. 5. Schizoaffective disorder. 6. Sinus tachycardia. 7. Morbid obesity BMI of 49.2. HOSPITAL COURSE: This patient presented with altered mental status. Valproic acid was elevated. Seen by Psychiatry Dr. Reyna. Valproic acid was discontinued. The patient has some tachycardia and the patient's TSH was low at 0.12. Free T4 was normal. I did stop the patient's KENNEDY inhibitor, added patient a small dose of beta jessica. I spoke to the nurse and according to her, the caregiver had come in. The patient was back to her baseline was having baseline tremor was present. In my discharge summary I forgot discontinued the Depakote. I spoke to nurse, Zeynep today and that she will contact the legal guardian and the prison and so that the Depakote can be discontinued. PHYSICAL EXAMINATION: On examination patient has mild tremor. Able to answer questions slowly. Lungs are clear. The patient is afebrile, tolerating a diet. CONSULTATION: Dr. Reyna from Psychiatry. DISCHARGE MEDICATIONS: 1. Ativan 1 mg p.o. q.i.d. 2. Clozaril 50 mg q.h.s. 3. Luvox 50 mg p.o. daily. 4. Augmentin 875 1 tab q.12h 6 tablets. 5. Lopressor 12.5 p.o. b.i.d. Discontinued medications include: Zestril and Depakote ER. Follow up with [facility] in [address] up with Dr. Washburn's 09/12/17. MMODL / IJN: [id number] /
--- NOTE | 2017-09-08 07:32 | DS ---
DISCHARGE SUMMARY ADDENDUM: To discharge summary on [facility]. ADDENDUM TO DISCHARGE SUMMARY: DATE OF ADDENDUM: 09/07/17 I have made a correction to my discharge summary. Patient's Depakote is being discontinued. I spoke to the in charge at [facility] now at telephone #[phone]. As requested by her, I am faxing a copy of the corrected discharge medication list with Depakote ER being taken off and this is being conveyed by her to the nurse again who is faxing the papers. Copy to Dr. Washburn. MMODL / IJN: [id number] /
== END 2017-09-06 17:48 | disposition home or self-care (01) | DRG 177 ==
LOC: EC 09:11 → 5MS5E 13:34
PROVIDERS: ADMIT Hospitalist; ATTEND Hospitalist
DX: J69.0 Pneumonitis due to inhalation of food and vomit (principal); G92 Toxic encephalopathy; T42.6X5A Adverse effect of other antiepileptic and sedative-hypnotic drugs, initial encounter; J68.0 Bronchitis and pneumonitis due to chemicals, gases, fumes and vapors; F25.9 Schizoaffective disorder, unspecified; T42.4X5A Adverse effect of benzodiazepines, initial encounter; F43.10 Post-traumatic stress disorder, unspecified; F90.9 Attention-deficit hyperactivity disorder, unspecified type; I10 Essential (primary) hypertension; F79 Unspecified intellectual disabilities; F32.9 Major depressive disorder, single episode, unspecified; R13.10 Dysphagia, unspecified; R32 Unspecified urinary incontinence; R00.0 Tachycardia, unspecified; R62.50 Unspecified lack of expected normal physiological development in childhood; R40.0 Somnolence; Z79.899 Other long term (current) drug therapy; Z88.8 Allergy status to other drugs, medicaments and biological substances; Y92.9 Unspecified place or not applicable
CPT/HCPCS: 36415; 70450; 71045; 71046; 80048; 80053; 80164; 81001; 82140; 82550; 82553; 83690; 83735; 84439; 84443; 84484; 85025; 85027; 85379; 85610; 85730; 86140; 87040; 93005; 96365; 96366; 99285

== ENCOUNTER 2017-09-16 21:15 | Inpatient (IN) | payer MEDICARE, OTHER ==
[2017-09-16] MEDS ORDERED: ACETAMINOPHEN TAB 500 MG TAB PO STA (21:43)
[2017-09-16] MEDS ORDERED: SODIUM CHLORIDE 0.9% 1,000 ML IV ONE (21:51)
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
[2017-09-17] MEDS: LORazepam 1 MG TAB PO PRN ×2 (00:16→20:46)
[2017-09-17] MEDS: METOPROLOL TARTRATE 12.5 MG TAB PO SCH ×3 (00:16→20:46)
[2017-09-17] MEDS: DIVALPROEX 250 MG TABLET.DR PO SCH (08:03)
[2017-09-17 13:11] LABS: Appearance,Urine Clear (Clear); Bacteria,Urine Rare /hpf; Bilirubin,Urine Negative (Negative); Blood,Urine Trace (Negative); Color,Urine Light Yellow; Glucose,Urine (UA) Negative (Negative); Hyaline Casts,Urine 1 /lpf (0-2); Ketones,Urine Negative (Negative); Leukocyte Esterase,Urine Moderate (Negative); Nitrite,Urine Negative (Negative); Protein,Urine Negative (Negative); RBC,Urine 1 /hpf (0-5); Specific Gravity,Urine 1.005 (1.001-1.035); Urobilinogen,Urine <2.0 mg/dL (<2.0); WBC,Urine 5 /hpf (0-5)
--- NOTE | 2017-09-17 14:02 | CONS ---
CONSULTATION DATE OF SERVICE: 09/17/2017. IDENTIFYING DATA: This patient is a single, female, 27 years old, admitted to the 4th floor for mental status changes. HISTORY OF PRESENT ILLNESS: The patient has a longstanding diagnosis of intellectual disability. She apparently was transferred from [facility] with the request of her undergoing a neurologic consultation. The patient has been admitted to the mental health unit twice in 2016. I did review those reports. She has been treated in the past with Depakote for agitated behavior in the context of her intellectual disability. I spoke with nursing this morning. Apparently, she has a recent history of having a Depakote toxicity, although the number was not available. She reportedly is recovering from a recent aspiration pneumonia and there is some question as to whether not she has a urinary tract infection. Nursing states that the patient has been lying in bed. She has demonstrated no agitated behavior. This morning, she is asking me if she can go for a walk and she would like to eat macaroni and cheese. The patient is a very limited historian. She answers questions very briefly and very slowly. She provides no answers to some questions. It appears neurology has ordered the Depakote again 750 mg daily. PAST PSYCHIATRIC HISTORY: 2 prior inpatient psychiatric hospitalizations that I am aware of. Suicide attempt history unknown. She has been treated with antipsychotic medication in the past and developed neuroleptics malignant syndrome. Subsequently, antipsychotic medication is not being used on her. She resides in a longterm setting. PAST MEDICAL HISTORY: Reported aspiration pneumonia in the recent past, questionable urinary tract infection. She is treated with Lopressor at home. She has been treated with a beta jessica in the past at [facility] for agitation. ALLERGIES: No known drug allergies. CHEMICAL DEPENDENCY HISTORY: None. FAMILY HISTORY: Family psychiatric and chemical dependency history unknown. SOCIAL HISTORY: Relatively unknown other than the patient has a guardian and likely resides in a longterm setting. MENTAL STATUS EXAM: The patient is an overweight female. She is lying in bed, dressed in hospital gowns. Eye contact is staring in nature. She will stare for extended periods of time without speaking. She will provide some brief answers to questions asked. She speaks quietly. She demonstrates a tremor of both upper extremities throughout our interaction. She states she is doing that because she is cold. She does not feel that she can control it, however. She demonstrates no agitated behavior. She is oriented to being in the hospital. With multiple choice cues she is able to correctly name the day of the week and the month. She is not able to identify the correct year. She reports having no thoughts of harming herself or others. She is endorsing no hallucinations. She indicates some fear that someone could break in to the hospital. IMPRESSION: 1. Intellectual disability, rule out symptoms of psychosis. 2. Reported recent history of pneumonia, possible urinary tract infection, reported recent Depakote toxicity. 3. Significant psychosocial dysfunction due to intellectual disability. PLAN: The patient has been restarted on Depakote 750 mg daily by Neurology. She has Ativan as needed. We will continue to follow as needed. No further recommendations at this time. Nursing states that the urinalysis has been repeated. She is demonstrating no agitated behavior at this time. We will await input from Neurology. ISAI / JANICE: [id number] /
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
[2017-09-17] MEDS: cefTRIAXone IN SWFI 1,000 MG/10 ML SYRINGE IVP SCH (17:34)
[2017-09-17] MEDS: MELATONIN 3 MG TABLET PO SCH (20:46)
[2017-09-17] MEDS: HEPARIN SODIUM,PORCINE 5,000 UNIT/ML 1 ML VIAL SQ SCH (23:18)
[2017-09-18] MEDS: cefTRIAXone IN SWFI 1,000 MG/10 ML SYRINGE IVP SCH (07:27)
[2017-09-18] MEDS: DIVALPROEX 250 MG TABLET.DR PO SCH (07:31)
[2017-09-18] MEDS: HEPARIN SODIUM,PORCINE 5,000 UNIT/ML 1 ML VIAL SQ SCH ×3 (07:31→23:44)
[2017-09-18] MEDS: METOPROLOL TARTRATE 12.5 MG TAB PO SCH ×2 (07:31→21:33)
[2017-09-18] MEDS: LORazepam 1 MG TAB PO PRN ×2 (09:55→18:20)
[2017-09-18] MEDS ORDERED: ACETAMINOPHEN TAB 325 MG TAB PO STA (09:56)
[2017-09-18 12:19] LABS: Basophils % (A) 1 %; Eosinophils # (A) 0.1 k/uL (0-0.7); Eosinophils % (A) 1 %; HCT 42.7 % (34.0-46.0); HGB 13.4 gm/dL (11.4-16.0); Lymphocytes # (A) 1.6 k/uL (1.0-4.8); Lymphocytes % (A) 28 %; MCH 31.2 pg (25.0-35.0); MCHC 31.3 g/dL (31.0-37.0); MCV 99.6 fL (80.0-100.0); Mean Platelet Volume 7.4; Monocytes # (A) 0.4 k/uL (0-1.0); Monocytes % (A) 6 %; Neutrophils # (A) 3.4 k/uL (1.3-7.7); Neutrophils % (A) 61 %; Platelet Count 237 k/uL (150-450); RBC 4.28 m/uL (3.80-5.40); RDW 13.4 % (11.5-15.5); WBC 5.5 k/uL (3.8-10.6)
[2017-09-18 12:39] LABS: Anion Gap 16 mmol/L; Blood Urea Nitrogen 10 mg/dL (7-17); Calcium 9.7 mg/dL (8.4-10.2); Carbon Dioxide 19 mmol/L (22-30); Chloride 107 mmol/L (98-107); Glucose 93 mg/dL (74-99); Potassium 4.2 mmol/L (3.5-5.1); Sodium 142 mmol/L (137-145)
--- NOTE | 2017-09-18 15:00 | P.PN ---
Subjective Progress Note Date: 09/18/17 Principal diagnosis: Patient is a 27-year-old female is being followed in neurology service for altered mental status. Patient lives in a senior living. She was recently seen for aspiration pneumonia and had her medications discontinued. Depakote was restarted and level this morning was 41.7 . She is much more alert and interactive today. Her upper body tremors continue. At the time of my evaluation, patient is resting comfortably in bed and appears to be in no acute distress. Objective - Vital Signs Vital signs: Vital Signs Temp 99.1 F 09/18/17 06:55 Pulse 100 09/18/17 06:55 Resp 16 09/18/17 06:55 BP 133/67 09/18/17 06:55 Pulse Ox 96 09/18/17 06:55 Intake & Output 09/17/17 09/18/17 09/18/17 18:59 06:59 18:59 Other: Voiding Method Toilet Toilet Toilet Diaper Diaper Diaper # Voids 1 1 2 - Exam PHYSICAL EXAM: GENERAL APPEARANCE: Patient is a developmentally delayed, female who appears to be in no acute distress. HEENT: Normocephalic, atraumatic, no facial asymmetry is seen. Neck is supple with no masses felt. CARDIOVASCULAR: Regular rate and rhythm. ABDOMEN: Nontender, nondistended. EXTREMITIES: Show no edema or clubbing. NEUROLOGICAL EXAM: A meaningful neurological exam could not be performed due to patient being developmentally delayed. Patient does move all 4 extremities on command. Follow simple commands. Strength is 4/5 in bilateral lower extremities and 5-/5 in bilateral upper extremities. No obvious facial asymmetry is noted. Sensory exam could not be verified due to communication barrier. Upper body tremors noted. No seizure activity is seen. - Labs CBC & Chem 7: 09/18/17 11:49 09/18/17 11:49 Labs: Abnormal Lab Results - Last 24 Hours (Table) 09/18/17 Range/Units 11:49 Carbon Dioxide 19 L (22-30) mmol/L Creatinine 0.47 L (0.52-1.04) mg/dL Microbiology - Last 24 Hours (Table) 09/17/17 12:48 Urine Culture - Final Urine,Catheterized Assessment and Plan Plan: Impression: 1. Tremors 2. Altered mental status, resolving 3. Generalized weakness 4. Febrile illness 5. Hypertension 6. Developmentally delayed Recommendation: Patient has recent history of Depakote toxicity. Patient was on Luvox at that time which can potentiate Depakote levels. Patient is no longer on Luvox. Depakote was discontinued and patient was having altered mental status. Patient has been restarted on Depakote 750 mg daily. Depakote level was 41.7 today. Patient also has a beta jessica ordered which will benefit the tremors. Tremors continue. I will start the patient on Mysoline 50 mg daily at bedtime. Mysoline can be increased as needed. Patient has Ativan as needed. Psychiatric consult reviewed. Patient had a recent CT scan of the brain which showed no acute process. Patient is stable from neurological standpoint for discharge. I will continue to follow with you. Further recommendations to follow. . I performed an examination of the patient and discussed the management with the AIRCRAFT WORKER. I have reviewed the AIRCRAFT WORKER notes and agree with the findings and plan of care.
[2017-09-18] MEDS ORDERED: PRIMIDONE 50 MG TAB PO SCH (21:00)
[2017-09-18] MEDS: MELATONIN 3 MG TABLET PO SCH (21:33)
[2017-09-18] MEDS: ACETAMINOPHEN ORAL SUSP (PEDS) 3,840 MG/120 ML BOTTLE PO PRN (22:51)
[2017-09-18 23:17] LABS: ALT 38 U/L (9-52); AST 30 U/L (14-36)
--- NOTE | 2017-09-19 00:17 | P.PN ---
Subjective Progress Note Date: 09/18/17 Principal diagnosis: Altered mental status and tremors Patient is a 27-year-old female with a known history of developmental delay currently in alf was initially transferred to [facility] due to increased tremors and generalized weakness and was also having fever. T- max was 100.5 on admission. Patient does have chronic tremors of bilateral upper extremities. Patient was recently admitted to the hospital due to Depakote toxicity. Depakote and BB all has been discontinued at that time. Otherwise patient does not have any complaints of chest pain or shortness of breath. No cough or sputum production. No shortness of breath. No nausea vomiting diarrhea. Pt. is a poor historian due to underlying medical condition and developmentally delay. CT head showed no convincing evidence of acute intracranial hemorrhage, acute infarct, mass or mass effect, midline shift or extra-axial fluid collection. No hydrocephalus. The cid-white matter differentiation is preserved. chest x-ray showed underpenetrated left base, unable to adequately assess. Remainder of the lung appears clear. Urinalysis showed greater than 20 RBC and 16-25 leukocytes and 10-30 bacteria with greater than 10 squamous epithelial cells TSH is 0.044, BNP 259 Free T4 1.62 WNL Total T3 1.29. Lactic acid 1.4 Sodium 141 potassium 3.9BUN 9.0 creatinine 0.65 hemoglobin 12.7, MCV 96.5, platelets 243, INR 1.309, AST 28, AST 33, alk phos 105, albumin 3.6, 09/18/2017 Patient is still having also mental status was slightly improved. Otherwise continues to have tremors. Patient is being continued on Depakote. Level is within normal limits day. Patient is also on metoprolol which will help for this tremors. Mysoline was added as per neurology recommendations. Otherwise urine culture is pending at this time. Continued antibiotics in the form of ceftriaxone. Patient was seen by psychiatric and recommended no intervention at this time. No fever no chills. Patient is not tolerating oral diet very well. Otherwise continue to monitor closely. Complete review of systems could not be obtained from the patient Current medications reviewed Objective - Vital Signs Vital signs: Vital Signs Temp 100.0 F H 09/18/17 15:00 Pulse 106 H 09/18/17 15:00 Resp 18 09/18/17 15:00 BP 115/77 09/18/17 15:00 Pulse Ox 97 09/18/17 15:00 Intake & Output 09/17/17 09/18/17 09/18/17 18:59 06:59 18:59 Other: Voiding Method Toilet Toilet Toilet Diaper Diaper Diaper # Voids 1 1 2 - Exam Patient is lying in the bed comfortably, no acute distress, awake alert but not oriented . Patient cannot communicate. HEENT: Normocephalic. Neck is supple. Pupils reactive. Nostrils clear. Oral cavity is moist. Ears reveal no drainage. Neck reveals no JVD, carotid bruits, or thyromegaly. CHEST EXAMINATION: Trachea is central. Symmetrical expansion. Lung jeornimo clear to auscultation and percussion. CARDIAC: Normal S1, S2 with no gallops. No murmurs ABDOMEN: Soft. Bowel sounds normal. No organomegaly. No abdominal bruits. Extremities: reveal no edema. No clubbing or cyanosis Neurologically awake, alert with well-coordinated movements. No gross focal deficits noted Skin: No rash or skin lesions. Psychiatric: Cooperative. Could not be assessed completely Musculoskeletal: No joint swelling or deformity. Normal range of motion. - Labs CBC & Chem 7: 09/18/17 11:49 09/18/17 11:49 Labs: Abnormal Lab Results - Last 24 Hours (Table) 09/18/17 Range/Units 11:49 Carbon Dioxide 19 L (22-30) mmol/L Creatinine 0.47 L (0.52-1.04) mg/dL Microbiology - Last 24 Hours (Table) 09/17/17 12:48 Urine Culture - Final Urine,Catheterized Assessment and Plan Assessment: Increased Tremors of bilateral upper extremities. Started back on metoprolol and Depakote. Added Mysoline. Possible urinary tract infection. Initial urinalysis at [facility] likely not a good sample. Generalized weakness and altered mental status. Improving. Unlikely encephalopathy Developmentally delayed Hypertension Recent Depakote toxicity. Depakote was on hold ADD/ADHD, Depression, PTSD, Schizoaffective Disorder, Schizophrenia DVT prophylaxis Plan: Patient was started back on Depakote and metoprolol. Urine culture is pending.. Continue with ceftriaxone. Patient was initially given a dose of ceftriaxone at [facility]. Patient is currently afebrile. Neurology has seen the patient. Repeat Depakote level was ordered is within normal limits. We'll continue the current medications and follow up closely. Further recommendations based on the clinical course. Time with Patient: Greater than 30
[2017-09-19] MEDS: LORazepam 2 MG/ML INJ IV PRN ×2 (02:31→10:01)
[2017-09-19] MEDS: METOPROLOL TARTRATE 12.5 MG TAB PO SCH ×2 (08:17→21:40)
[2017-09-19] MEDS: DIVALPROEX 250 MG TABLET.DR PO SCH (08:17)
[2017-09-19] MEDS: cefTRIAXone IN SWFI 1,000 MG/10 ML SYRINGE IVP SCH (08:18)
[2017-09-19] MEDS: HEPARIN SODIUM,PORCINE 5,000 UNIT/ML 1 ML VIAL SQ SCH ×3 (08:18→22:52)
--- NOTE | 2017-09-19 11:44 | XR ---
EXAMINATION TYPE: XR chest 1V portable DATE OF EXAM: 09/19/2017 COMPARISON: 09/03/2017 HISTORY: Shortness of breath TECHNIQUE: Single frontal view of the chest is obtained. FINDINGS: There is no focal air space opacity, pleural effusion, or pneumothorax seen. The cardiac silhouette size is within normal limits. The osseous structures are intact. IMPRESSION: 1. No acute process.
--- NOTE | 2017-09-19 13:01 | P.CN ---
Psychiatric Consult - . Consult date: 09/19/17 Consult:: 09/19/17 12:53 Patient was seen for a psych consult regarding "altered mental status". Patient is not able to speak and provide any information. Her detailed history is not available either. Patient apparently has intellectual disability and is in a fci. Apparently she was in [facility] and was sent here for a neurological exam regarding her tremors. Patient was seen by a neurologist but I was not able to see any neurological recommendation. According to the nurse patient is able to sleep well and does not have any tremors, but when she is awake she has tremors. Patient continues to have a lot of tremors when I tried to talk to her and when I tried to examine for muscle rigidity and tremors. The tremors almost went away when her attention was distracted. She also has muscle rigidity which appears to be rather negativistic instead of real cogwheel rigidity. Patient weighs over 113 kg and is only on 750 mg of Depakote with very subtherapeutic serum level. She is also on Mysoline 50 mg a day which is also very subtherapeutic. I suppose these 2 medications were prescribed for some form of seizure disorder. Suggestion: Increase Depakote to 1000 mg twice a day or Depakote ER 2000 mg once a day, increase Mysoline to 50 mg 3 times a day which can further be increased from 750-1500 mg per day in 3-4 divided doses a day. Gathering information about her medication from the fci would be helpful.
--- NOTE | 2017-09-19 14:08 | CDI ---
Last Revision, April 2017 Documentation Clarification Form Date: 09/20/2017 12:00:00 AM From: Wendy Angelo RN, CCDS Admit Date: 09/16/2017 9:50:00 PM Patient Name: Diane Mayfield Visit Number: [id number] Discharge Date: ATTENTION: The Clinical Documentation Specialists (CDI) and [facility] Coding Staff appreciate your assistance in clarifying documentation. Please respond to the clarification below the line at the bottom and electronically sign. The CDI & [facility] Coding staff will review the response and follow-up if needed. Please note: Queries are made part of the Legal Health Record. If you have any questions, please contact the author of this message via ITS. Dr. Bala Short Altered mental status was documented in the consult and your progress note on . Patient history/risk factors: Developmentally delayed, Hypertension, Tremors, ADHD, PTSD, Schizoaffective disorder. Clinical Indicators: Patient was treated 2 weeks ago for aspiration pneumonia. Present with decline continues to become weaker and weaker and less able to take care of her herself with basic needs. Vital signs 166/115 136 18 100.596 % RA Labs: WBC 5.5, UA: Leukocyte Esterase Moderate X ray: No acute process Treatment: Rocephin IV Monitor Labs Neurological assessment per protocol In your professional opinion, please clarify the etiology of the altered mental status, if known. Encephalopathy (specify Type: Metabolic, Toxic and Underlying Medical Illness) Delirium (specify cause): Dementia (if know, specify Type and if with/without Behavioral Disturbance) Other condition (please specify) Unable to determine Please continue to document in your progress notes in order to capture severity of illness and risk of mortality. Include clinical findings that support your diagnosis. MTDD
--- NOTE | 2017-09-19 17:22 | P.PN ---
Subjective Progress Note Date: 09/19/17 Principal diagnosis: Patient is a 27-year-old female is being followed in neurology service for altered mental status. [facility]. She was recently seen for aspiration pneumonia and had her medications discontinued. Depakote was restarted and level this morning was 41.7 . She is much more alert and interactive today. Her upper body tremors continue. At the time of my evaluation, patient is resting comfortably in bed and appears to be in no acute distress. 09/19/2017 Patient is a 27-year-old developmentally delayed female who is being followed by the neurology for altered mental status and tremors. Patient [facility] in a jail. Patient is more awake and alert today since restarting Depakote. Patient was started on Mysoline for tremors. I will slowly increase dosing. At the time of my evaluation, patient is resting comfortably in bed and appears to be in no acute distress. Objective - Vital Signs Vital signs: Vital Signs Temp 99.7 F H 09/19/17 14:43 Pulse 121 H 09/19/17 14:43 Resp 18 09/19/17 16:15 BP 134/78 09/19/17 14:43 Pulse Ox 96 09/19/17 14:43 Intake & Output 09/18/17 09/19/17 09/19/17 18:59 06:59 18:59 Other: Voiding Method Toilet Diaper Diaper Diaper Incontinent Incontinent # Voids 2 2 2 - Exam PHYSICAL EXAM: GENERAL APPEARANCE: Patient is a developmentally delayed, female who appears to be in no acute distress. HEENT: Normocephalic, atraumatic, no facial asymmetry is seen. Neck is supple with no masses felt. CARDIOVASCULAR: Regular rate and rhythm. ABDOMEN: Nontender, nondistended. EXTREMITIES: Show no edema or clubbing. NEUROLOGICAL EXAM: A meaningful neurological exam could not be performed due to patient being developmentally delayed. Patient does move all 4 extremities on command. Follow simple commands. Strength is 4/5 in bilateral lower extremities and 5-/5 in bilateral upper extremities. No obvious facial asymmetry is noted. Sensory exam could not be verified due to communication barrier. Upper body tremors noted. No seizure activity is seen. - Labs CBC & Chem 7: 09/18/17 11:49 09/18/17 11:49 Assessment and Plan Plan: Impression: 1. Tremors 2. Altered mental status, resolving 3. Generalized weakness 4. Febrile illness 5. Hypertension 6. Developmentally delayed Recommendation: Patient seems more awake and alert today. Depakote level was 41.7 yesterday. Patient was started on Mysoline for tremors. Tremors continue. I will increase to Mysoline 50 mg 3 times a day. Patient has Ativan as needed. Psychiatric consult reviewed. Psychiatry recommends increase in Depakote dosing. I recommend periodic Depakote levels as she has recent history of Depakote toxicity. Patient had a recent CT scan of the brain which showed no acute process. Patient is stable from neurological standpoint for discharge. I will continue to follow with you on an as-needed basis. Feel free to call with any questions or concerns. I performed an examination of the patient and discussed the management with the MILLINERY COPYIST. I have reviewed the MILLINERY COPYIST notes and agree with the findings and plan of care.
[2017-09-19] MEDS: PRIMIDONE 50 MG TAB PO SCH ×2 (17:36→21:40)
[2017-09-19] MEDS: DIVALPROEX 500 MG TABLET.DR PO SCH (21:27)
[2017-09-19] MEDS: MELATONIN 3 MG TABLET PO SCH (21:40)
[2017-09-19] MEDS: BACITRACIN 500 UNIT/GM OINT 28.4 GM TUBE TOPICAL SCH (21:40)
[2017-09-19] MEDS ORDERED: PRIMIDONE 50 MG TAB PO SCH (22:00)
[2017-09-20] MEDS ORDERED: METOPROLOL TARTRATE 12.5 MG TAB PO SCH (03:02)
--- NOTE | 2017-09-20 03:05 | P.PN ---
Subjective Progress Note Date: 09/19/17 Principal diagnosis: Altered mental status and tremors Patient is a 27-year-old female with a known history of developmental delay currently in correction was initially transferred to [facility] due to increased tremors and generalized weakness and was also having fever. T- max was 100.5 on admission. Patient does have chronic tremors of bilateral upper extremities. Patient was recently admitted to the hospital due to Depakote toxicity. Depakote and BB all has been discontinued at that time. Otherwise patient does not have any complaints of chest pain or shortness of breath. No cough or sputum production. No shortness of breath. No nausea vomiting diarrhea. Pt. is a poor historian due to underlying medical condition and developmentally delay. CT head showed no convincing evidence of acute intracranial hemorrhage, acute infarct, mass or mass effect, midline shift or extra-axial fluid collection. No hydrocephalus. The cid-white matter differentiation is preserved. chest x-ray showed underpenetrated left base, unable to adequately assess. Remainder of the lung appears clear. Urinalysis showed greater than 20 RBC and 16-25 leukocytes and 10-30 bacteria with greater than 10 squamous epithelial cells TSH is 0.044, BNP 259 Free T4 1.62 WNL Total T3 1.29. Lactic acid 1.4 Sodium 141 potassium 3.9BUN 9.0 creatinine 0.65 hemoglobin 12.7, MCV 96.5, platelets 243, INR 1.309, AST 28, AST 33, alk phos 105, albumin 3.6, 09/18/2017 Patient is still having also mental status was slightly improved. Otherwise continues to have tremors. Patient is being continued on Depakote. Level is within normal limits day. Patient is also on metoprolol which will help for this tremors. Mysoline was added as per neurology recommendations. Otherwise urine culture is pending at this time. Continued antibiotics in the form of ceftriaxone. Patient was seen by psychiatric and recommended no intervention at this time. No fever no chills. Patient is not tolerating oral diet very well. Otherwise continue to monitor closely. 09/19/2017 Patient continues to have tremors today but improved. Increased Mysoline dose. Otherwise still tachycardic. Metoprolol dose increased to 25 mg twice a day. Urine cultures showed no growth. Neurology and psychiatry has seen the patient. Fever is trending down. Blood Cultures shows no growth so far. Complete review of systems could not be obtained from the patient Current medications reviewed Objective - Vital Signs Vital signs: Vital Signs Temp 99.7 F H 09/19/17 14:43 Pulse 121 H 09/19/17 14:43 Resp 18 09/19/17 16:15 BP 134/78 09/19/17 14:43 Pulse Ox 96 09/19/17 14:43 Intake & Output 09/18/17 09/19/17 09/19/17 18:59 06:59 18:59 Other: Voiding Method Toilet Diaper Diaper Diaper Incontinent Incontinent # Voids 2 2 2 - Exam Patient is lying in the bed comfortably, no acute distress, awake alert but not oriented . Patient cannot communicate. HEENT: Normocephalic. Neck is supple. Pupils reactive. Nostrils clear. Oral cavity is moist. Ears reveal no drainage. Neck reveals no JVD, carotid bruits, or thyromegaly. CHEST EXAMINATION: Trachea is central. Symmetrical expansion. Lung jeronimo clear to auscultation and percussion. CARDIAC: Normal S1, S2 with no gallops. No murmurs ABDOMEN: Soft. Bowel sounds normal. No organomegaly. No abdominal bruits. Extremities: reveal no edema. No clubbing or cyanosis Neurologically awake, alert with well-coordinated movements. No gross focal deficits noted Skin: No rash or skin lesions. Psychiatric: Cooperative. Could not be assessed completely Musculoskeletal: No joint swelling or deformity. Normal range of motion. - Labs CBC & Chem 7: 09/18/17 11:49 09/18/17 11:49 Labs: Microbiology - Last 24 Hours (Table) 09/17/17 12:48 Urine Culture - Final Urine,Catheterized Assessment and Plan Assessment: Increased Tremors of bilateral upper extremities. Started back on metoprolol and Depakote. Also started on Mysoline. Possible urinary tract infection. Initial urinalysis at [facility] likely not a good sample. Urine culture showed no growth. Generalized weakness and altered mental status. Improving. Unlikely encephalopathy Developmentally delayed Hypertension Recent Depakote toxicity. Depakote was on hold ADD/ADHD, Depression, PTSD, Schizoaffective Disorder, Schizophrenia DVT prophylaxis Plan: Patient was started back on Depakote and metoprolol. Continue with ceftriaxone. Urine culture showed no growth. Patient was initially given a dose of ceftriaxone at [facility]. Patient is currently afebrile. Neurology has seen the patient. Repeat Depakote level was ordered is within normal limits. Increased the dose of Mysoline. We'll continue the current medications and follow up closely. Further recommendations based on the clinical course. Time with Patient: Greater than 30
[2017-09-20] MEDS: LORazepam 2 MG/ML INJ IV PRN (05:14)
[2017-09-20] MEDS: cefTRIAXone IN SWFI 1,000 MG/10 ML SYRINGE IVP SCH (08:42)
[2017-09-20] MEDS: HEPARIN SODIUM,PORCINE 5,000 UNIT/ML 1 ML VIAL SQ SCH ×3 (08:42→23:08)
[2017-09-20] MEDS: BACITRACIN 500 UNIT/GM OINT 28.4 GM TUBE TOPICAL SCH ×2 (08:42→20:11)
[2017-09-20] MEDS: METOPROLOL TARTRATE 25 MG TAB PO SCH ×2 (08:42→20:07)
[2017-09-20] MEDS: PRIMIDONE 50 MG TAB PO SCH ×2 (08:43→20:07)
[2017-09-20] MEDS: DIVALPROEX 500 MG TABLET.DR PO SCH (08:43)
--- NOTE | 2017-09-20 11:28 | P.CN ---
Psychiatric Consult - . Consult date: 09/20/17 Consult:: 09/20/17 11:25 Patient was seen for a follow-up examination. Today she made some noises when I tried to talk to her and did not verbalize in any way. She did not show any tremors on her left upper limb and has tremors of right upper limb which appears to be more intentional. She apparently did not develop any adverse effects from increased dose of Depakote or Mysoline. Suggestion: Increase Mysoline to 100 mg 3 times a day, continue Depakote thousand milligrams twice a day, check Depakote level 10 hours after the last dose, CBC, ALT and AST in 3-5 days.
--- NOTE | 2017-09-20 11:52 | P.DS ---
Providers Date of admission: 09/16/17 21:50 Expected date of discharge: 09/20/17 Attending physician: Dia Obrien Consults: 09/16/17 21:51 Consult Physician Urgent Consulting Provider: Sheng Patton Consult Reason/Comments: Altered mental status Do you want consulting provider notified?: Yes Consult Physician Urgent Consulting Provider: Bala Short Consult Reason/Comments: Altered mental status Do you want consulting provider notified?: Yes Primary care physician: Kenneth Washburn [facility] Course: Final DIagnoses: Increased Tremors of bilateral upper extremities. Started back on metoprolol and Depakote. Also started on Mysoline. Improved Possible urinary tract infection. Initial urinalysis at [facility] likely not a good sample. Urine culture showed no growth. Generalized weakness and altered mental status. Improving. Unlikely encephalopathy Developmentally delayed Hypertension Recent Depakote toxicity. Depakote was on hold, resumed ADD/ADHD, Depression, PTSD, Schizoaffective Disorder, Schizophrenia DVT prophylaxis Hospital course:Altered mental status and tremors Patient is a 27-year-old female with a known history of developmental delay currently in halfway was initially transferred to [facility] due to increased tremors and generalized weakness and was also having fever. T- max was 100.5 on admission. Patient does have chronic tremors of bilateral upper extremities. Patient was recently admitted to the hospital due to Depakote toxicity. Depakote and BB all has been discontinued at that time. Otherwise patient does not have any complaints of chest pain or shortness of breath. No cough or sputum production. No shortness of breath. No nausea vomiting diarrhea. Pt. is a poor historian due to underlying medical condition and developmentally delay. CT head showed no convincing evidence of acute intracranial hemorrhage, acute infarct, mass or mass effect, midline shift or extra-axial fluid collection. No hydrocephalus. The cid-white matter differentiation is preserved. chest x-ray showed underpenetrated left base, unable to adequately assess. Remainder of the lung appears clear. Urinalysis showed greater than 20 RBC and 16-25 leukocytes and 10-30 bacteria with greater than 10 squamous epithelial cells TSH is 0.044, BNP 259 Free T4 1.62 WNL Total T3 1.29. Lactic acid 1.4 Sodium 141 potassium 3.9BUN 9.0 creatinine 0.65 hemoglobin 12.7, MCV 96.5, platelets 243, INR 1.309, AST 28, AST 33, alk phos 105, albumin 3.6, 09/18/2017 Patient is still having also mental status was slightly improved. Otherwise continues to have tremors. Patient is being continued on Depakote. Level is within normal limits day. Patient is also on metoprolol which will help for this tremors. Mysoline was added as per neurology recommendations. Otherwise urine culture is pending at this time. Continued antibiotics in the form of ceftriaxone. Patient was seen by psychiatric and recommended no intervention at this time. No fever no chills. Patient is not tolerating oral diet very well. Otherwise continue to monitor closely. 09/19/2017 Patient continues to have tremors today but improved. Increased Mysoline dose. Otherwise still tachycardic. Metoprolol dose increased to 25 mg twice a day. Urine cultures showed no growth. Neurology and psychiatry has seen the patient. Fever is trending down. Blood Cultures shows no growth so far. Complete review of systems could not be obtained from the patient Current medications reviewed 09/20/2017 tremors significantly improved on increased dose of Depakote and Mysoline.Evaluated by a physical therapy with subacute rehab recommended at discharge.cleared by both psychiatry and neurology for discharge. Primidone dose further increased by psychiatry. Case management/social work attempting to speak with legal guardian. Patient will be discharged to either subacute rehab in a stable condition with guarded prognosis, once consent received by the legal guardian. Patient is lying in the bed comfortably, no acute distress, awake alert but not oriented . Mostly nonverbal, occasionally says "yes and no". CARDIAC: Normal S1, S2 with no gallops. No murmurs LUNGS: diminshed bilaterally. ABDOMEN: Soft. Bowel sounds normal. No organomegaly. No abdominal bruits. Neurologically awake, alert with well-coordinated movements.Generalized weakness. No gross focal deficits noted The impression and plan of care has been dictated as directed. : I performed a history and examination of this patient, discussed the same with the dictator. I agree with the dictator's note ,documented as a scribe. Any additional findings or plans will be noted. Time taken: 35 minutes Patient Condition at Discharge: Stable Plan - Discharge Summary Discharge Rx Participant: No New Discharge Prescriptions: New Acetaminophen Oral Susp (Peds) [Tylenol Oral Susp For Peds (Grape)] 650 mg PO Q6H PRN bottle PRN Reason: Fever Bacitracin Oint 1 applic TOPICAL BID applic Divalproex [Depakote] 1,000 mg PO BID #120 tablet. Metoprolol Tartrate [Lopressor] 25 mg PO BID@, #60 tab Primidone [Mysoline] 100 mg PO TID #180 tab Cefuroxime Axetil [Ceftin] 500 mg PO BID #6 tab Continue LORazepam [Ativan] 1 mg PO QID@,,, Menthol [Biofreeze] 1 applic TOPICAL QID PRN PRN Reason: BACK PAIN Melatonin 3 mg PO HS@2100 Discontinued Metoprolol Tartrate [Lopressor] 12.5 mg PO BID@ Discharge Medication List LORazepam [Ativan] 1 mg PO QID@08,,,09/01/17 [History] Menthol [Biofreeze] 1 applic TOPICAL QID PRN 09/01/17 [History] Melatonin 3 mg PO HS@2100 09/16/17 [History] Acetaminophen Oral Susp (Peds) [Tylenol Oral Susp For Peds (Grape)] 650 mg PO Q6H PRN bottle 09/20/17 [Rx] Bacitracin Oint 1 applic TOPICAL BID applic 09/20/17 [Rx] Cefuroxime Axetil [Ceftin] 500 mg PO BID #6 tab 09/20/17 [Rx] Divalproex [Depakote] 1,000 mg PO BID #120 tablet. 09/20/17 [Rx] Metoprolol Tartrate [Lopressor] 25 mg PO BID@ #60 tab 09/20/17 [Rx] Primidone [Mysoline] 100 mg PO TID #180 tab 09/20/17 [Rx] Follow up Appointment(s)/Referral(s): [facility], [NON-STAFF] - Kenneth Washburn DO [Primary Care Provider] - 3 Days Ambulatory/Diagnostic Orders: Comprehensive Metabolic Panel [LAB.AMB] Time Frame: 3 Days, Location: Determined By Patient Activity/Diet/Wound Care/Special Instructions: Periodic depakote levels with repeat Depakote level tomorrow Dysphasgia Level 1 Diet with 1:1 SUPERVISION WITH ALL MEALS, no straws Discharge Disposition: TRANSFER TO SNF/ECF
[2017-09-20] MEDS ORDERED: PRIMIDONE 50 MG TAB PO SCH (16:00)
--- NOTE | 2017-09-20 16:11 | P.PN ---
Subjective Progress Note Date: 09/20/17 Progress note being dictated for Dr. Obrien Altered mental status and tremors Interval history:Patient is a 27-year-old female with a known history of developmental delay currently in [facility] was initially transferred to [facility] due to increased tremors and generalized weakness and was also having fever. T-max was 100.5 on admission. Patient does have chronic tremors of bilateral upper extremities. Patient was recently admitted to the hospital due to Depakote toxicity. Depakote and BB all has been discontinued at that time. Otherwise patient does not have any complaints of chest pain or shortness of breath. No cough or sputum production. No shortness of breath. No nausea vomiting diarrhea. Pt. is a poor historian due to underlying medical condition and developmentally delay. CT head showed no convincing evidence of acute intracranial hemorrhage, acute infarct, mass or mass effect, midline shift or extra-axial fluid collection. No hydrocephalus. The cid-white matter differentiation is preserved. chest x-ray showed underpenetrated left base, unable to adequately assess. Remainder of the lung appears clear. Urinalysis showed greater than 20 RBC and 16-25 leukocytes and 10-30 bacteria with greater than 10 squamous epithelial cells TSH is 0.044, BNP 259 Free T4 1.62 WNL Total T3 1.29. Lactic acid 1.4 Sodium 141 potassium 3.9BUN 9.0 creatinine 0.65 hemoglobin 12.7, MCV 96.5, platelets 243, INR 1.309, AST 28, AST 33, alk phos 105, albumin 3.6, 09/18/2017 Patient is still having also mental status was slightly improved. Otherwise continues to have tremors. Patient is being continued on Depakote. Level is within normal limits day. Patient is also on metoprolol which will help for this tremors. Mysoline was added as per neurology recommendations. Otherwise urine culture is pending at this time. Continued antibiotics in the form of ceftriaxone. Patient was seen by psychiatric and recommended no intervention at this time. No fever no chills. Patient is not tolerating oral diet very well. Otherwise continue to monitor closely. 09/19/2017 Patient continues to have tremors today but improved. Increased Mysoline dose. Otherwise still tachycardic. Metoprolol dose increased to 25 mg twice a day. Urine cultures showed no growth. Neurology and psychiatry has seen the patient. Fever is trending down. Blood Cultures shows no growth so far. Complete review of systems could not be obtained from the patient Current medications reviewed 09/20/2017 primidone increased further per psychiatry. Patient became more lethargic, less interactive with difficulty swallowing. Evaluated by speech therapy, now NPO. Tachycardic, beta jessica increased yesterday. T-max 99.7. Objective - Vital Signs Vital signs: Vital Signs Temp 99.5 F 09/20/17 15:16 Pulse 113 H 09/20/17 15:16 Resp 19 09/20/17 15:16 BP 154/69 09/20/17 15:16 Pulse Ox 95 09/20/17 15:16 Intake & Output 09/19/17 09/20/17 09/20/17 18:59 06:59 18:59 Other: Voiding Method Diaper Diaper Incontinent Incontinent Incontinent # Voids 2 2 3 - Exam Patient is lying in the bed, no acute distress, awake alert but not oriented . Lethargic. HEENT: Normocephalic. Neck is supple. Pupils reactive. Oral cavity dry. Neck reveals no JVD, carotid bruits, or thyromegaly. CHEST EXAMINATION: Trachea is central. Symmetrical expansion. Lung jeronimo clear to auscultation and percussion. CARDIAC: Normal S1, S2 with no gallops. No murmurs ABDOMEN: Soft. Bowel sounds normal. No organomegaly. No abdominal bruits. Extremities: reveal no edema. No clubbing or cyanosis Neurologically awake, alert with well-coordinated movements. No gross focal deficits noted Skin: No rash or skin lesions. Psychiatric: Cooperative. Could not be assessed completely Musculoskeletal: No joint swelling or deformity. Normal range of motion. - Labs CBC & Chem 7: 09/18/17 11:49 09/18/17 11:49 Labs: Microbiology - Last 24 Hours (Table) 09/18/17 22:29 Blood Culture - Preliminary Blood No Growth after 24 hours Assessment and Plan Assessment: Increased Tremors of bilateral upper extremities. Started back on metoprolol and Depakote. Also started on Mysoline. Possible urinary tract infection. Initial urinalysis at [facility] likely not a good sample. Urine culture showed no growth. Generalized weakness and altered mental status. Improving. Developmentally delayed Hypertension Recent Depakote toxicity. Depakote was on hold ADD/ADHD, Depression, PTSD, Schizoaffective Disorder, Schizophrenia DVT prophylaxis Acute metabolic encephalopathy accompanied by new onset of not swallowing- pooling food in mouth, suspect med induced. Plan: Continue on current medication regime ,monitoring and symptomatic treatment. As mentioned above patient more lethargic, less interactive and now holding food in mouth, not swallowing-suspect med induced. Patient's Depakote and Mysoline have been increased. Neurology notified with recommendations of decreasing Mysoline and decreasing Depakote down to home dose as EEG had reported negative for seizures. NPO,Strict aspiration precautions.Speech therapy to reevaluate swallowing tomorrow. Prognosis guarded given complex medical issues. The impression and plan of care has been dictated as directed. : I performed a history and examination of this patient, discussed the same with the dictator. I agree with the dictator's note ,documented as a scribe. Any additional findings or plans will be noted.
[2017-09-20] MEDS: VALPROATE SODIUM 250 MG in SODIUM CHLORIDE 0.9% 50 ML IVPB SCH ×2 (17:17→23:08)
[2017-09-20] MEDS ORDERED: cloNIDine 0.2 MG/24HR PATCH 1 PATCH PATCH TRANSDERM SCH (19:15)
[2017-09-20] MEDS: MELATONIN 3 MG TABLET PO SCH (20:07)
[2017-09-20] MEDS ORDERED: DIVALPROEX ER 250 MG TAB.ER.24H PO SCH (21:00)
[2017-09-21] MEDS: PRIMIDONE 50 MG TAB PO SCH (07:53)
[2017-09-21] MEDS: BACITRACIN 500 UNIT/GM OINT 28.4 GM TUBE TOPICAL SCH ×2 (07:54→20:48)
[2017-09-21] MEDS: VALPROATE SODIUM 250 MG in SODIUM CHLORIDE 0.9% 50 ML IVPB SCH ×3 (07:54→23:13)
[2017-09-21] MEDS: cefTRIAXone IN SWFI 1,000 MG/10 ML SYRINGE IVP SCH (07:54)
[2017-09-21] MEDS: HEPARIN SODIUM,PORCINE 5,000 UNIT/ML 1 ML VIAL SQ SCH ×3 (07:54→23:13)
[2017-09-21 10:10] LABS: Basophils % (A) 1 %; Eosinophils % (A) 1 %; HGB 13.4 gm/dL (11.4-16.0); Lymphocytes # (A) 1.6 k/uL (1.0-4.8); Lymphocytes % (A) 31 %; MCH 31.9 pg (25.0-35.0); MCHC 32.8 g/dL (31.0-37.0); MCV 97.3 fL (80.0-100.0); Mean Platelet Volume 8.1; Monocytes # (A) 0.5 k/uL (0-1.0); Monocytes % (A) 9 %; Neutrophils # (A) 2.9 k/uL (1.3-7.7); Neutrophils % (A) 56 %; Platelet Count 214 k/uL (150-450); RBC 4.22 m/uL (3.80-5.40); RDW 13.2 % (11.5-15.5); WBC 5.1 k/uL (3.8-10.6)
[2017-09-21 10:41] LABS: Anion Gap 16 mmol/L; Blood Urea Nitrogen 11 mg/dL (7-17); Calcium 9.5 mg/dL (8.4-10.2); Carbon Dioxide 21 mmol/L (22-30); Chloride 107 mmol/L (98-107); Glucose 73 mg/dL (74-99); Sodium 144 mmol/L (137-145)
[2017-09-21 10:47] LABS: Valproic Acid (Depakene) 68.9 ug/mL
[2017-09-21 11:42] LABS: T4, Free (Free Thyroxine) 2.62 ng/dL (0.78-2.19)
[2017-09-21 12:06] LABS: Glucose,Whole Blood 77 mg/dL (75-99)
--- NOTE | 2017-09-21 12:54 | P.PN ---
Subjective Progress Note Date: 09/21/17 Progress note being dictated for Dr. Obrien Altered mental status and tremors Interval history:Patient is a 27-year-old female with a known history of developmental delay currently in [facility] was initially transferred to [facility] due to increased tremors and generalized weakness and was also having fever. T-max was 100.5 on admission. Patient does have chronic tremors of bilateral upper extremities. Patient was recently admitted to the hospital due to Depakote toxicity. Depakote and BB all has been discontinued at that time. Otherwise patient does not have any complaints of chest pain or shortness of breath. No cough or sputum production. No shortness of breath. No nausea vomiting diarrhea. Pt. is a poor historian due to underlying medical condition and developmentally delay. CT head showed no convincing evidence of acute intracranial hemorrhage, acute infarct, mass or mass effect, midline shift or extra-axial fluid collection. No hydrocephalus. The cid-white matter differentiation is preserved. chest x-ray showed underpenetrated left base, unable to adequately assess. Remainder of the lung appears clear. Urinalysis showed greater than 20 RBC and 16-25 leukocytes and 10-30 bacteria with greater than 10 squamous epithelial cells TSH is 0.044, BNP 259 Free T4 1.62 WNL Total T3 1.29. Lactic acid 1.4 Sodium 141 potassium 3.9BUN 9.0 creatinine 0.65 hemoglobin 12.7, MCV 96.5, platelets 243, INR 1.309, AST 28, AST 33, alk phos 105, albumin 3.6, 09/18/2017 Patient is still having also mental status was slightly improved. Otherwise continues to have tremors. Patient is being continued on Depakote. Level is within normal limits day. Patient is also on metoprolol which will help for this tremors. Mysoline was added as per neurology recommendations. Otherwise urine culture is pending at this time. Continued antibiotics in the form of ceftriaxone. Patient was seen by psychiatric and recommended no intervention at this time. No fever no chills. Patient is not tolerating oral diet very well. Otherwise continue to monitor closely. 09/19/2017 Patient continues to have tremors today but improved. Increased Mysoline dose. Otherwise still tachycardic. Metoprolol dose increased to 25 mg twice a day. Urine cultures showed no growth. Neurology and psychiatry has seen the patient. Fever is trending down. Blood Cultures shows no growth so far. Complete review of systems could not be obtained from the patient Current medications reviewed 09/20/2017 primidone increased further per psychiatry. Patient became more lethargic, less interactive with difficulty swallowing. Evaluated by speech therapy, now NPO. Tachycardic, beta jessica increased yesterday. T-max 99.7. 09/21/2017 Yesterday afternoon Depakote and Mysoline doses decreased. Remains lethargic, but is interacting a little bit more this morning. Mild tremors. Continues to pool food in mouth. Reevaluated by speech therapy and patient is strict NPO. Mild tachycardia. TSH low, free T3 and free T4 pending. Mildly febrile. Unable to perform review of systems as patient is developmentally delayed, and underlying medical condition. Active Medications Acetaminophen (Tylenol Oral Susp For Peds (Grape)) 650 mg PO Q6H PRN PRN Reason: Fever Last Admin: 09/18/17 22:51 Dose: 650 mg Bacitracin (Bacitracin Oint) 1 applic TOPICAL BID [facility] TO [facility] Last Admin: 09/21/17 07:54 Dose: 1 applic Ceftriaxone Sodium (Rocephin) 1,000 mg IVP Q24HR [facility] Last Admin: 09/21/17 07:54 Dose: 1,000 mg Clonidine HCl (Catapres-Tts 0.2mg Patch) 1 patch TRANSDERM Q7D [facility] Last Admin: 09/20/17 20:11 Dose: 1 patch Heparin Sodium (Porcine) (Heparin) 5,000 unit SQ Q8HR [facility] Last Admin: 09/21/17 07:54 Dose: 5,000 unit Valproic Acid 250 mg/ Sodium (Chloride) 52.5 mls @ 50 mls/hr IVPB Q8HR [facility] Last Admin: 09/21/17 07:54 Dose: 50 mls/hr Lorazepam (Ativan) 1 mg IV QID PRN PRN Reason: Agitation Last Admin: 09/20/17 05:14 Dose: 1 mg Melatonin (Melatonin) 3 mg PO HS@2100 [facility] Last Admin: 09/20/17 20:07 Dose: Not Given Primidone (Mysoline) 100 mg PO DAILY [facility] Last Admin: 09/21/17 07:53 Dose: Not Given Objective - Vital Signs Vital signs: Vital Signs Temp 99.3 F 09/21/17 05:57 Pulse 111 H 09/21/17 05:57 Resp 16 09/21/17 05:57 BP 118/67 09/21/17 05:57 Pulse Ox 97 09/21/17 05:57 Intake & Output 09/20/17 09/21/17 09/21/17 18:59 06:59 18:59 Other: Voiding Method Incontinent Incontinent Incontinent # Voids 2 1 1 - Exam Patient is sitting up in bed, no acute distress, awake alert but not oriented . Lethargic. HEENT: Normocephalic. Neck is supple. Pupils reactive. Oral cavity dry. Neck reveals no JVD, carotid bruits, or thyromegaly. CHEST EXAMINATION: Trachea is central. Symmetrical expansion. Lung jeronimo clear to auscultation and percussion. CARDIAC: Normal S1, S2 with no gallops. No murmurs ABDOMEN: Soft. Bowel sounds normal. No organomegaly. No abdominal bruits. Extremities: reveal no edema. No clubbing or cyanosis Neurologically awake, alert with well-coordinated movements. No gross focal deficits noted Skin: No rash or skin lesions. Psychiatric: Cooperative. Could not be assessed completely - Labs CBC & Chem 7: 09/21/17 08:44 09/21/17 08:44 Labs: Abnormal Lab Results - Last 24 Hours (Table) 09/20/17 09/21/17 09/21/17 Range/Units 14:12 08:44 08:44 Carbon Dioxide 21 L (22-30) mmol/L Creatinine 0.40 L (0.52-1.04) mg/dL Glucose 73 L (74-99) mg/dL TSH <0.015 L (0.465-4.680) mIU/L Free T4 2.62 H (0.78-2.19) ng/dL Microbiology - Last 24 Hours (Table) 09/18/17 22:29 Blood Culture - Preliminary Blood No Growth after 48 hours Assessment and Plan Assessment: Increased Tremors of bilateral upper extremities. Started back on metoprolol and Depakote. Also started on Mysoline. Possible urinary tract infection. Initial urinalysis at [facility] likely not a good sample. Urine culture showed no growth. Generalized weakness and altered mental status. Improving. Developmentally delayed Hypertension Recent Depakote toxicity. Depakote was on hold ADD/ADHD, Depression, PTSD, Schizoaffective Disorder, Schizophrenia DVT prophylaxis Acute metabolic encephalopathy accompanied by new onset of not swallowing- pooling food in mouth, MRI pending. Plan: Continue on current medication regime ,monitoring and symptomatic treatment. MRI of the brain ordered as patient more lethargic, less interactive and now holding food in mouth, not swallowing; which is not patient' s baseline. Mysoline and Depakote doses have been decreased . Discussed with neurology, potential lumbar puncture, PEG tube placement; Lumbar puncture not warranted at this time, hold off on PEG tube placement. Strict NPO,Strict aspiration precautions. TSH low with Free T3 and free T4 pending. Prognosis guarded given complex medical issues. Further recommendations to follow. The impression and plan of care has been dictated as directed. : I performed a history and examination of this patient, discussed the same with the dictator. I agree with the dictator's note ,documented as a scribe. Any additional findings or plans will be noted.
[2017-09-21] MEDS: LORazepam 2 MG/ML INJ IV PRN (14:07)
[2017-09-21 14:36] VITALS: BMI 36.9
[2017-09-21 16:02] LABS: Glucose,Whole Blood 72 mg/dL (75-99)
[2017-09-21] MEDS: METHIMAZOLE 5 MG TAB PO SCH ×2 (16:12→20:49)
--- NOTE | 2017-09-21 16:31 | MR ---
EXAMINATION TYPE: MR brain wo/w con DATE OF EXAM: 09/21/2017 COMPARISON: NONE HISTORY: Utilized Fast Brain, Pt. Moving, Gadavist 10ml, continued altered mental status. CONTRAST: Performed utilizing 10 mL intravenous Gadavist gadolinium contrast. TECHNIQUE: Multiplanar, multiecho imaging on a 3.0 Catarina magnet is performed through the brain. Stud y is performed within 24 hours of arrival to the hospital. The craniovertebral junction is normal. The pituitary is normal. Diffusion-weighted imaging is performed. No abnormal hyperintensity is present to suggest an acute i ntracranial infarct or acute ischemic change. Signal within the brain is normal. Ventricles and sulci are appropriate for the patient age. No abnormal enhancement is evident. IMPRESSIONS: 1. Normal pre and postcontrast MRI brain.
[2017-09-21 18:31] LABS: Glucose,Whole Blood 73 mg/dL (75-99)
[2017-09-21 20:21] LABS: Glucose,Whole Blood 84 mg/dL (75-99)
[2017-09-21] MEDS: MELATONIN 3 MG TABLET PO SCH (20:49)
[2017-09-22 00:31] LABS: Glucose,Whole Blood 84 mg/dL (75-99)
[2017-09-22 06:33] LABS: Glucose,Whole Blood 80 mg/dL (75-99)
[2017-09-22 08:56] LABS: Basophils % (A) 0 %; Eosinophils # (A) 0.1 k/uL (0-0.7); Eosinophils % (A) 1 %; HCT 40.6 % (34.0-46.0); HGB 13.1 gm/dL (11.4-16.0); Lymphocytes # (A) 1.3 k/uL (1.0-4.8); Lymphocytes % (A) 30 %; MCH 31.6 pg (25.0-35.0); MCHC 32.2 g/dL (31.0-37.0); MCV 98.1 fL (80.0-100.0); Mean Platelet Volume 8.5; Monocytes # (A) 0.4 k/uL (0-1.0); Monocytes % (A) 9 %; Neutrophils # (A) 2.6 k/uL (1.3-7.7); Neutrophils % (A) 58 %; Platelet Count 181 k/uL (150-450); RBC 4.13 m/uL (3.80-5.40); RDW 13.2 % (11.5-15.5); WBC 4.5 k/uL (3.8-10.6)
[2017-09-22] MEDS: VALPROATE SODIUM 250 MG in SODIUM CHLORIDE 0.9% 50 ML IVPB SCH ×3 (09:04→23:33)
[2017-09-22] MEDS: METHIMAZOLE 5 MG TAB PO SCH ×3 (09:05→20:06)
[2017-09-22] MEDS: PRIMIDONE 50 MG TAB PO SCH (09:05)
[2017-09-22 09:10] LABS: Anion Gap 15 mmol/L; Blood Urea Nitrogen 13 mg/dL (7-17); Calcium 9.8 mg/dL (8.4-10.2); Carbon Dioxide 23 mmol/L (22-30); Chloride 107 mmol/L (98-107); Glucose 78 mg/dL (74-99); Potassium 4.3 mmol/L (3.5-5.1); Sodium 145 mmol/L (137-145)
[2017-09-22] MEDS: HEPARIN SODIUM,PORCINE 5,000 UNIT/ML 1 ML VIAL SQ SCH ×3 (09:18→23:34)
[2017-09-22] MEDS: BACITRACIN 500 UNIT/GM OINT 28.4 GM TUBE TOPICAL SCH ×2 (09:19→20:06)
[2017-09-22] MEDS: cefTRIAXone IN SWFI 1,000 MG/10 ML SYRINGE IVP SCH (09:19)
[2017-09-22] MEDS: LORazepam 2 MG/ML INJ IV PRN (11:00)
[2017-09-22 12:12] LABS: Glucose,Whole Blood 90 mg/dL (75-99)
[2017-09-22] MEDS ORDERED: SODIUM CHLORIDE 0.9% 1,000 ML with MVI, ADULT NO.4 WITH VIT K 10 ML, THIAMINE 100 MG, F... IV ONE ×4 (12:30)
--- NOTE | 2017-09-22 16:33 | P.PN ---
Subjective Progress Note Date: 09/22/17 Progress note being dictated for Dr. Obrien Altered mental status and tremors Interval history:Patient is a 27-year-old female with a known history of developmental delay currently in long term was initially transferred to [facility] due to increased tremors and generalized weakness and was also having fever. T-max was 100.5 on admission. Patient does have chronic tremors of bilateral upper extremities. Patient was recently admitted to the hospital due to Depakote toxicity. Depakote and BB all has been discontinued at that time. Otherwise patient does not have any complaints of chest pain or shortness of breath. No cough or sputum production. No shortness of breath. No nausea vomiting diarrhea. Pt. is a poor historian due to underlying medical condition and developmentally delay. CT head showed no convincing evidence of acute intracranial hemorrhage, acute infarct, mass or mass effect, midline shift or extra-axial fluid collection. No hydrocephalus. The cid-white matter differentiation is preserved. chest x-ray showed underpenetrated left base, unable to adequately assess. Remainder of the lung appears clear. Urinalysis showed greater than 20 RBC and 16-25 leukocytes and 10-30 bacteria with greater than 10 squamous epithelial cells TSH is 0.044, BNP 259 Free T4 1.62 WNL Total T3 1.29. Lactic acid 1.4 Sodium 141 potassium 3.9BUN 9.0 creatinine 0.65 hemoglobin 12.7, MCV 96.5, platelets 243, INR 1.309, AST 28, AST 33, alk phos 105, albumin 3.6, 09/18/2017 Patient is still having also mental status was slightly improved. Otherwise continues to have tremors. Patient is being continued on Depakote. Level is within normal limits day. Patient is also on metoprolol which will help for this tremors. Mysoline was added as per neurology recommendations. Otherwise urine culture is pending at this time. Continued antibiotics in the form of ceftriaxone. Patient was seen by psychiatric and recommended no intervention at this time. No fever no chills. Patient is not tolerating oral diet very well. Otherwise continue to monitor closely. 09/19/2017 Patient continues to have tremors today but improved. Increased Mysoline dose. Otherwise still tachycardic. Metoprolol dose increased to 25 mg twice a day. Urine cultures showed no growth. Neurology and psychiatry has seen the patient. Fever is trending down. Blood Cultures shows no growth so far. Complete review of systems could not be obtained from the patient Current medications reviewed 09/20/2017 primidone increased further per psychiatry. Patient became more lethargic, less interactive with difficulty swallowing. Evaluated by speech therapy, now NPO. Tachycardic, beta jessica increased yesterday. T-max 99.7. 09/21/2017 Yesterday afternoon Depakote and Mysoline doses decreased. Remains lethargic, but is interacting a little bit more this morning. Mild tremors. Continues to pool food in mouth. Reevaluated by speech therapy and patient is strict NPO. Mild tachycardia. TSH low, free T3 and free T4 pending. Mildly febrile. Unable to perform review of systems as patient is developmentally delayed, and underlying medical condition. Active Medications Acetaminophen (Tylenol Oral Susp For Peds (Grape)) 650 mg PO Q6H PRN PRN Reason: Fever Last Admin: 09/18/17 22:51 Dose: 650 mg Bacitracin (Bacitracin Oint) 1 applic TOPICAL BID [facility] Last Admin: 09/21/17 07:54 Dose: 1 applic Ceftriaxone Sodium (Rocephin) 1,000 mg IVP Q24HR [facility] Last Admin: 09/21/17 07:54 Dose: 1,000 mg Clonidine HCl (Catapres-Tts 0.2mg Patch) 1 patch TRANSDERM Q7D [facility] Last Admin: 09/20/17 20:11 Dose: 1 patch Heparin Sodium (Porcine) (Heparin) 5,000 unit SQ Q8HR [facility] Last Admin: 09/21/17 07:54 Dose: 5,000 unit Valproic Acid 250 mg/ Sodium (Chloride) 52.5 mls @ 50 mls/hr IVPB Q8HR [facility] Last Admin: 09/21/17 07:54 Dose: 50 mls/hr Lorazepam (Ativan) 1 mg IV QID PRN PRN Reason: Agitation Last Admin: 09/20/17 05:14 Dose: 1 mg Melatonin (Melatonin) 3 mg PO HS@2100 [facility] Last Admin: 09/20/17 20:07 Dose: Not Given Primidone (Mysoline) 100 mg PO DAILY [facility] Last Admin: 09/21/17 07:53 Dose: Not Given 09/22/2017 Tapazole initiated yesterday for hyperthyroidism. MRI reported normal pre-and postcontrast. Minimal change in swallowing today. T-max 99.9. Objective - Vital Signs Vital signs: Vital Signs Temp 97.4 F L 09/22/17 06:50 Pulse 104 H 09/22/17 06:50 Resp 20 09/22/17 06:50 BP 132/69 09/22/17 06:50 Pulse Ox 93 L 09/22/17 06:50 Intake & Output 09/21/17 09/22/17 09/22/17 18:59 06:59 18:59 Intake Total 0 Balance 0 Weight 113.398 kg Intake: Oral 0 Other: Voiding Method Incontinent Incontinent # Voids 2 2 - Exam Patient is sitting up in bed, no acute distress, awake alert but not oriented . Lethargic, nonverbal. HEENT: Normocephalic. Neck is supple. Pupils reactive. Oral cavity dry. Neck reveals no JVD, carotid bruits, or thyromegaly. CHEST EXAMINATION: Trachea is central. Symmetrical expansion. Lung jeronimo clear to auscultation and percussion. CARDIAC: Normal S1, S2 with no gallops. No murmurs ABDOMEN: Soft. Bowel sounds normal. No organomegaly. No abdominal bruits. Extremities: reveal no edema. No clubbing or cyanosis Neurologically awake, alert, No gross focal deficits noted Skin: No rash or skin lesions. Psychiatric: Cooperative. Could not be assessed completely - Labs CBC & Chem 7: 09/22/17 07:50 09/22/17 07:50 Labs: Abnormal Lab Results - Last 24 Hours (Table) 09/21/17 09/21/17 09/21/17 Range/Units 08:44 08:44 15:59 Carbon Dioxide 21 L (22-30) mmol/L Creatinine 0.40 L (0.52-1.04) mg/dL Glucose 73 L (74-99) mg/dL POC Glucose (mg/dL) 72 L (75-99) mg/dL Free T4 2.62 H (0.78-2.19) ng/dL 09/21/17 09/22/17 Range/Units 18:10 07:50 Carbon Dioxide (22-30) mmol/L Creatinine 0.40 L (0.52-1.04) mg/dL Glucose (74-99) mg/dL POC Glucose (mg/dL) 73 L (75-99) mg/dL Free T4 (0.78-2.19) ng/dL Microbiology - Last 24 Hours (Table) 09/18/17 22:29 Blood Culture - Preliminary Blood No Growth after 72 hours Assessment and Plan Assessment: Increased Tremors of bilateral upper extremities. Started back on metoprolol and Depakote. Also started on Mysoline. Possible urinary tract infection. Initial urinalysis at [facility] likely not a good sample. Urine culture showed no growth. Generalized weakness and altered mental status. Improving. Developmentally delayed Hypertension Recent Depakote toxicity. Depakote was on hold ADD/ADHD, Depression, PTSD, Schizoaffective Disorder, Schizophrenia DVT prophylaxis Acute metabolic encephalopathy accompanied by new onset of not swallowing- pooling food in mouth, MRI pending. Hyperthyroidism Plan: Continue on current medication regime ,monitoring and symptomatic treatment. Follow closely with neurology. Strict NPO,Strict aspiration precautions. If no improvement in swallowing by tomorrow, will discuss with legal guardian PEG tube placement. Wool Puller consult in place with recommendations pending. Prognosis guarded given complex medical issues. Further recommendations to follow. The impression and plan of care has been dictated as directed. : I performed a history and examination of this patient, discussed the same with the dictator. I agree with the dictator's note ,documented as a scribe. Any additional findings or plans will be noted.
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
[2017-09-22] MEDS: SODIUM CHLORIDE 0.9% 1,000 ML with MVI, ADULT NO.4 WITH VIT K 10 ML, THIAMINE 100 MG, F... IV SCH ×4 (17:31)
[2017-09-22 17:36] LABS: Glucose,Whole Blood 78 mg/dL (75-99)
[2017-09-22 17:43] LABS: T4, Free (Free Thyroxine) 2.53 ng/dL (0.78-2.19)
[2017-09-22] MEDS: MELATONIN 3 MG TABLET PO SCH (20:06)
[2017-09-23 00:22] LABS: Glucose,Whole Blood 73 mg/dL (75-99)
[2017-09-23 07:42] LABS: Basophils % (A) 0 %; Eosinophils % (A) 1 %; HCT 42.1 % (34.0-46.0); HGB 13.5 gm/dL (11.4-16.0); Lymphocytes # (A) 1.3 k/uL (1.0-4.8); Lymphocytes % (A) 29 %; MCH 31.3 pg (25.0-35.0); MCV 97.8 fL (80.0-100.0); Monocytes # (A) 0.4 k/uL (0-1.0); Monocytes % (A) 10 %; Neutrophils # (A) 2.5 k/uL (1.3-7.7); Neutrophils % (A) 58 %; Platelet Count 181 k/uL (150-450); RDW 13.2 % (11.5-15.5); WBC 4.4 k/uL (3.8-10.6)
[2017-09-23 08:00] LABS: Anion Gap 16 mmol/L; Blood Urea Nitrogen 14 mg/dL (7-17); Calcium 9.6 mg/dL (8.4-10.2); Carbon Dioxide 19 mmol/L (22-30); Chloride 109 mmol/L (98-107); Glucose 89 mg/dL (74-99); Sodium 144 mmol/L (137-145)
[2017-09-23] MEDS: METHIMAZOLE 5 MG TAB PO SCH ×2 (09:32→14:39)
[2017-09-23] MEDS: cefTRIAXone IN SWFI 1,000 MG/10 ML SYRINGE IVP SCH (09:32)
[2017-09-23] MEDS: HEPARIN SODIUM,PORCINE 5,000 UNIT/ML 1 ML VIAL SQ SCH ×2 (09:32→16:08)
[2017-09-23] MEDS: PRIMIDONE 50 MG TAB PO SCH (09:32)
[2017-09-23] MEDS: VALPROATE SODIUM 250 MG in SODIUM CHLORIDE 0.9% 50 ML IVPB SCH ×2 (09:32→16:08)
[2017-09-23] MEDS: BACITRACIN 500 UNIT/GM OINT 28.4 GM TUBE TOPICAL SCH ×2 (09:33→22:31)
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
[2017-09-23 12:13] LABS: Glucose,Whole Blood 94 mg/dL (75-99)
[2017-09-23] MEDS ORDERED: PROPOFOL 10 MG/ML 20 ML VIAL IV ONE (12:13)
[2017-09-23] MEDS ORDERED: MIDAZOLAM 2 MG/2 ML VIAL ONE (12:13)
[2017-09-23] MEDS ORDERED: IV FLUID CONTINUATION 1,000 ML IV ONE (12:14)
[2017-09-23] MEDS ORDERED: ACETAMINOPHEN IV (For NPO) 1,000 MG in EMPTY BAG 1 BAG IVPB PRN (13:22)
[2017-09-23] MEDS ORDERED: ACETAMINOPHEN IV (For NPO) 1,000 MG in EMPTY BAG 1 BAG IVPB SCH (13:30)
--- NOTE | 2017-09-23 13:42 | P.OP ---
Date of Procedure: 09/23/17 Preoperative Diagnosis: Malnutrition Postoperative Diagnosis: Malnutrition Procedure(s) Performed: PEG tube placement Anesthesia: MAC Surgeon: Cuauhtemoc Iglesias Estimated Blood Loss (ml): 5 Pathology: none sent Condition: stable Disposition: PACU Description of Procedure: The patient's placed on the operating table in the supine position. She received IV sedation. The gastroscope was placed oropharynx and passed into the esophagus and into the stomach. The scope was then placed through the pylorus. The first and second portion of the duodenum appeared normal. The scope was then brought back the antrum and this appeared normal. Scope was then retroflexed and there is no significant hiatal hernia. A suitable light reflux was seen the anterior abdominal wall. And then a skin incision was made after the skin was anesthetized 1% local Xylocaine. The needles placed into the stomach under direct visitation the needle was snared. The wire was placed through the needle and the wire was snared and brought up through the oropharynx. The PEG tube was placed over top the wire brought down to the stomach. The PEG tube was secured at the 7 cm gail. The one-piece bolster was applied. Patient top she will was sent to cover in stable condition.
[2017-09-23] MEDS: KETOROLAC 30 MG/ML 1 ML VIAL IVP SCH ×2 (14:36→20:53)
[2017-09-23] MEDS: SODIUM CHLORIDE 0.9% 1,000 ML with MVI, ADULT NO.4 WITH VIT K 10 ML, THIAMINE 100 MG, F... IV SCH ×4 (14:37)
[2017-09-23] MEDS: MORPHINE SULFATE 4 MG/ML SYRINGE IVP PRN (16:08)
--- NOTE | 2017-09-23 18:59 | P.PN ---
Subjective Progress Note Date: 09/23/17 Progress note being dictated for Dr. Obrien Altered mental status and tremors Interval history:Patient is a 27-year-old female with a known history of developmental delay currently in jail was initially transferred to [facility] due to increased tremors and generalized weakness and was also having fever. T-max was 100.5 on admission. Patient does have chronic tremors of bilateral upper extremities. Patient was recently admitted to the hospital due to Depakote toxicity. Depakote and BB all has been discontinued at that time. Otherwise patient does not have any complaints of chest pain or shortness of breath. No cough or sputum production. No shortness of breath. No nausea vomiting diarrhea. Pt. is a poor historian due to underlying medical condition and developmentally delay. CT head showed no convincing evidence of acute intracranial hemorrhage, acute infarct, mass or mass effect, midline shift or extra-axial fluid collection. No hydrocephalus. The cid-white matter differentiation is preserved. chest x-ray showed underpenetrated left base, unable to adequately assess. Remainder of the lung appears clear. Urinalysis showed greater than 20 RBC and 16-25 leukocytes and 10-30 bacteria with greater than 10 squamous epithelial cells TSH is 0.044, BNP 259 Free T4 1.62 WNL Total T3 1.29. Lactic acid 1.4 Sodium 141 potassium 3.9BUN 9.0 creatinine 0.65 hemoglobin 12.7, MCV 96.5, platelets 243, INR 1.309, AST 28, AST 33, alk phos 105, albumin 3.6, 09/18/2017 Patient is still having also mental status was slightly improved. Otherwise continues to have tremors. Patient is being continued on Depakote. Level is within normal limits day. Patient is also on metoprolol which will help for this tremors. Mysoline was added as per neurology recommendations. Otherwise urine culture is pending at this time. Continued antibiotics in the form of ceftriaxone. Patient was seen by psychiatric and recommended no intervention at this time. No fever no chills. Patient is not tolerating oral diet very well. Otherwise continue to monitor closely. 09/19/2017 Patient continues to have tremors today but improved. Increased Mysoline dose. Otherwise still tachycardic. Metoprolol dose increased to 25 mg twice a day. Urine cultures showed no growth. Neurology and psychiatry has seen the patient. Fever is trending down. Blood Cultures shows no growth so far. Complete review of systems could not be obtained from the patient Current medications reviewed 09/20/2017 primidone increased further per psychiatry. Patient became more lethargic, less interactive with difficulty swallowing. Evaluated by speech therapy, now NPO. Tachycardic, beta jessica increased yesterday. T-max 99.7. 09/21/2017 Yesterday afternoon Depakote and Mysoline doses decreased. Remains lethargic, but is interacting a little bit more this morning. Mild tremors. Continues to pool food in mouth. Reevaluated by speech therapy and patient is strict NPO. Mild tachycardia. TSH low, free T3 and free T4 pending. Mildly febrile. Unable to perform review of systems as patient is developmentally delayed, and underlying medical condition. Active Medications Acetaminophen (Tylenol Oral Susp For Peds (Grape)) 650 mg PO Q6H PRN PRN Reason: Fever Last Admin: 09/18/17 22:51 Dose: 650 mg Bacitracin (Bacitracin Oint) 1 applic TOPICAL BID [facility] Last Admin: 09/21/17 07:54 Dose: 1 applic Ceftriaxone Sodium (Rocephin) 1,000 mg IVP Q24HR [facility] Last Admin: 09/21/17 07:54 Dose: 1,000 mg Clonidine HCl (Catapres-Tts 0.2mg Patch) 1 patch TRANSDERM Q7D [facility] Last Admin: 09/20/17 20:11 Dose: 1 patch Heparin Sodium (Porcine) (Heparin) 5,000 unit SQ Q8HR [facility] Last Admin: 09/21/17 07:54 Dose: 5,000 unit Valproic Acid 250 mg/ Sodium (Chloride) 52.5 mls @ 50 mls/hr IVPB Q8HR [facility] Last Admin: 09/21/17 07:54 Dose: 50 mls/hr Lorazepam (Ativan) 1 mg IV QID PRN PRN Reason: Agitation Last Admin: 09/20/17 05:14 Dose: 1 mg Melatonin (Melatonin) 3 mg PO HS@2100 [facility] Last Admin: 09/20/17 20:07 Dose: Not Given Primidone (Mysoline) 100 mg PO DAILY [facility] Last Admin: 09/21/17 07:53 Dose: Not Given 09/22/2017 Tapazole initiated yesterday for hyperthyroidism. MRI reported normal pre-and postcontrast. Minimal change in swallowing today. T-max 99.9. 09/23/2017 evaluated by activities specialist, recommendations noted. No overnight events. Scheduled for PEG tube placement with surgery today. Consent being obtained from Guardian currently. Objective - Vital Signs Vital signs: Vital Signs Temp 98.6 F 09/23/17 06:00 Pulse 99 09/23/17 06:00 Resp 16 09/23/17 06:00 BP 125/76 09/23/17 06:00 Pulse Ox 97 09/23/17 06:00 Intake & Output 09/22/17 09/23/17 09/23/17 18:59 06:59 18:59 Intake Total 900 Balance 900 Weight 113.398 kg 113.398 kg Intake: Intake, IV Titration 900 Amount Sodium Chloride 0.9% 1, 900 000 ml @ 50 mls/hr IV . [id number] CORKY with Mvi, Adult No.4 with Vit K 10 ml with Thiamine 100 mg with Folic Acid 1 mg Rx#: [id number] Other: Voiding Method Incontinent Incontinent # Voids 2 1 # Bowel Movements 0 - Exam Patient is sitting up in bed, no acute distress, awake alert but not oriented . Lethargic, nonverbal. HEENT: Normocephalic. Neck is supple. Pupils reactive. Oral cavity dry. Neck reveals no JVD, carotid bruits, or thyromegaly. CHEST EXAMINATION: Trachea is central. Lung jeronimo clear to auscultation and percussion. CARDIAC: Normal S1, S2 with no gallops. No murmurs ABDOMEN: Soft. Bowel sounds normal. No organomegaly. No abdominal bruits. Extremities: reveal no edema. No clubbing or cyanosis Neurologically awake, alert, No gross focal deficits noted Skin: No rash or skin lesions. Psychiatric: Cooperative. Could not be assessed completely - Labs CBC & Chem 7: 09/23/17 07:27 09/23/17 07:27 Labs: Abnormal Lab Results - Last 24 Hours (Table) 09/20/17 09/22/17 09/23/17 Range/Units 14:12 07:50 00:18 Chloride (98-107) mmol/L Carbon Dioxide (22-30) mmol/L Creatinine (0.52-1.04) mg/dL POC Glucose (mg/dL) 73 L (75-99) mg/dL TSH <0.015 L (0.465-4.680) mIU/L Total T4 12.1 H (4.5 - 10.9) ug/dL Free T4 2.53 H (0.78-2.19) ng/dL 09/23/17 Range/Units 07:27 Chloride 109 H (98-107) mmol/L Carbon Dioxide 19 L (22-30) mmol/L Creatinine 0.39 L (0.52-1.04) mg/dL POC Glucose (mg/dL) (75-99) mg/dL TSH (0.465-4.680) mIU/L Total T4 (4.5 - 10.9) ug/dL Free T4 (0.78-2.19) ng/dL Microbiology - Last 24 Hours (Table) 09/18/17 22:29 Blood Culture - Preliminary Blood No Growth after 96 hours Assessment and Plan Assessment: Increased Tremors of bilateral upper extremities. Started back on metoprolol and Depakote. Also started on Mysoline. Possible urinary tract infection. Initial urinalysis at [facility] likely not a good sample. Urine culture showed no growth. Generalized weakness and altered mental status. Improving. Developmentally delayed Hypertension Recent Depakote toxicity. Depakote was on hold ADD/ADHD, Depression, PTSD, Schizoaffective Disorder, Schizophrenia DVT prophylaxis Acute metabolic encephalopathy accompanied by new onset of not swallowing- pooling food in mouth, MRI pending. Hyperthyroidism Plan: Continue on current medication regime ,monitoring and symptomatic treatment. Follow closely with neurology and endocrinology. Strict NPO,Strict aspiration precautions. Scheduled for PEG tube placement today. Prognosis guarded given complex medical issues. Further recommendations to follow. The impression and plan of care has been dictated as directed. : I performed a history and examination of this patient, discussed the same with the dictator. I agree with the dictator's note ,documented as a scribe. Any additional findings or plans will be noted.
[2017-09-23] MEDS: MELATONIN 3 MG TABLET PO SCH (22:30)
[2017-09-24] MEDS: KETOROLAC 30 MG/ML 1 ML VIAL IVP SCH ×5 (00:25→23:21)
[2017-09-24] MEDS: HEPARIN SODIUM,PORCINE 5,000 UNIT/ML 1 ML VIAL SQ SCH ×4 (00:26→23:21)
[2017-09-24] MEDS: VALPROATE SODIUM 250 MG in SODIUM CHLORIDE 0.9% 50 ML IVPB SCH ×4 (00:26→23:22)
[2017-09-24 00:56] LABS: Glucose,Whole Blood 87 mg/dL (75-99)
[2017-09-24] MEDS ORDERED: ACETAMINOPHEN IV (For NPO) 1,000 MG in EMPTY BAG 1 BAG IVPB ONE (01:00)
[2017-09-24] MEDS: LORazepam 2 MG/ML INJ IV PRN (01:31)
[2017-09-24 05:48] LABS: Glucose,Whole Blood 90 mg/dL (75-99)
[2017-09-24] MEDS: SODIUM CHLORIDE 0.9% 1,000 ML with MVI, ADULT NO.4 WITH VIT K 10 ML, THIAMINE 100 MG, F... IV SCH ×4 (08:49)
[2017-09-24] MEDS: cefTRIAXone IN SWFI 1,000 MG/10 ML SYRINGE IVP SCH (08:50)
[2017-09-24] MEDS: BACITRACIN 500 UNIT/GM OINT 28.4 GM TUBE TOPICAL SCH ×2 (08:50→21:03)
[2017-09-24] MEDS: MORPHINE SULFATE 4 MG/ML SYRINGE IVP PRN ×3 (08:52→20:11)
[2017-09-24 11:45] LABS: Glucose,Whole Blood 82 mg/dL (75-99)
[2017-09-24] MEDS ORDERED: ACETAMINOPHEN IV (For NPO) 1,000 MG in EMPTY BAG 1 BAG IVPB PRN (12:15)
[2017-09-24] MEDS: PRIMIDONE 50 MG TAB PO SCH (15:02)
[2017-09-24] MEDS: METHIMAZOLE 5 MG TAB PO SCH (15:03)
[2017-09-24] MEDS: PIPERACILLIN-TAZOBACTAM 3.375 GM in DEXTROSE/WATER 1 50ML.BAG IVPB SCH (16:22)
[2017-09-24 17:26] LABS: Glucose,Whole Blood 91 mg/dL (75-99)
--- NOTE | 2017-09-24 23:10 | PN ---
PROGRESS NOTE DATE OF SERVICE: 09/24/2017 This 27-year-old woman who was admitted with significant difficulties with swallowing and metabolic encephalopathy, had a PEG tube placement. No chest pain. No palpitations. No fever. Patient continues to be confused and minimally verbal. EXAM: Pulse 101, blood pressure 143/81, respirations 20, temperature 99.4, pulse ox 98% on room air. HEENT: Conjunctivae normal. NECK: No jugular venous distention. CARDIOVASCULAR: S1, S2 muffled. RESPIRATORY: Breath sounds diminished in the bases. A few scattered rhonchi. No crackles. ABDOMEN: Soft, nontender. LEGS: No edema. NERVOUS SYSTEM: Diffusely weak. Tone is increased. LABS: Accu-Cheks 80. CBC within normal limits. BMP noted. HCG is not detected. ASSESSMENT: 1. Change in mental status, acute metabolic encephalopathy with dysphagia, status post percutaneous endoscopic gastrostomy tube placement. 2. Increased tremors of bilateral extremities. 3. Possible aspiration pneumonia. 4. Possible urinary tract infection. 5. Generalized weakness. 6. Developmental delay. 7. Hypertension. 8. History of Depakote toxicity. 9. Attention deficit disorder, attention deficit hyperactivity disorder. 10.Depression. 11.Posttraumatic stress disorder. 12.Gastroesophageal reflux disease. 13.Schizophrenia. 14.Hyperthyroidism. RECOMMENDATION AND DISCUSSION: Recommend to continue current medical management and symptomatic treatment. Otherwise at this time, I would recommend continue with the tube feeds and I would also recommend head of bed elevated to 45 degrees and I would also recommend aspiration precautions, dietary evaluation. Dr. Guevara has also seen the patient. Endocrine is planning treatment with methimazole if there is a current hyperthyroidism. Outpatient followup is also being planned. Prognosis guarded. Further recommendations to follow. MMODL / IJN: [id number] /
[2017-09-24] MEDS: MELATONIN 3 MG TABLET PO SCH (23:22)
[2017-09-25] MEDS: PIPERACILLIN-TAZOBACTAM 3.375 GM in DEXTROSE/WATER 1 50ML.BAG IVPB SCH ×4 (00:24→18:20)
[2017-09-25] MEDS: LORazepam 2 MG/ML INJ IV PRN (00:25)
[2017-09-25 01:23] LABS: Glucose,Whole Blood 128 mg/dL (75-99)
[2017-09-25] MEDS: MORPHINE SULFATE 4 MG/ML SYRINGE IVP PRN ×4 (02:41→22:48)
[2017-09-25] MEDS: SODIUM CHLORIDE 0.9% 1,000 ML with MVI, ADULT NO.4 WITH VIT K 10 ML, THIAMINE 100 MG, F... IV SCH ×8 (05:47→18:30)
[2017-09-25] MEDS: KETOROLAC 30 MG/ML 1 ML VIAL IVP SCH ×4 (05:48→23:39)
[2017-09-25 06:24] LABS: Glucose,Whole Blood 145 mg/dL (75-99)
[2017-09-25 08:10] LABS: Basophils % (A) 0 %; Eosinophils # (A) 0.1 k/uL (0-0.7); Eosinophils % (A) 2 %; HCT 40.2 % (34.0-46.0); HGB 13.1 gm/dL (11.4-16.0); Lymphocytes % (A) 14 %; MCH 32.6 pg (25.0-35.0); MCHC 32.7 g/dL (31.0-37.0); MCV 99.7 fL (80.0-100.0); Mean Platelet Volume 8.1; Monocytes # (A) 0.6 k/uL (0-1.0); Monocytes % (A) 9 %; Neutrophils # (A) 5.1 k/uL (1.3-7.7); Neutrophils % (A) 74 %; Platelet Count 136 k/uL (150-450); RBC 4.03 m/uL (3.80-5.40); RDW 14.1 % (11.5-15.5); WBC 6.9 k/uL (3.8-10.6)
[2017-09-25 08:25] LABS: Anion Gap 12 mmol/L; Blood Urea Nitrogen 22 mg/dL (7-17); Calcium 9.3 mg/dL (8.4-10.2); Carbon Dioxide 26 mmol/L (22-30); Chloride 108 mmol/L (98-107); Glucose 128 mg/dL (74-99); Potassium 4.3 mmol/L (3.5-5.1); Sodium 146 mmol/L (137-145)
[2017-09-25] MEDS: VALPROATE SODIUM 250 MG in SODIUM CHLORIDE 0.9% 50 ML IVPB SCH ×2 (08:29→17:19)
[2017-09-25] MEDS: HEPARIN SODIUM,PORCINE 5,000 UNIT/ML 1 ML VIAL SQ SCH ×2 (08:29→15:07)
[2017-09-25] MEDS: BACITRACIN 500 UNIT/GM OINT 28.4 GM TUBE TOPICAL SCH ×2 (08:29→21:48)
[2017-09-25] MEDS: PRIMIDONE 50 MG TAB PO SCH (08:30)
[2017-09-25] MEDS: METHIMAZOLE 5 MG TAB PO SCH (08:30)
[2017-09-25 11:59] LABS: Glucose,Whole Blood 131 mg/dL (75-99)
[2017-09-25 15:09] LABS: INR 1.2 (<1.2); Partial Thromboplastin Time 22.8 sec (22.0-30.0); Prothrombin Time 11.2 sec (9.0-12.0)
--- NOTE | 2017-09-25 15:42 | XR ---
EXAMINATION TYPE: XR chest 1V portable DATE OF EXAM: 09/25/2017 COMPARISON: 09/19/2017 INDICATION: Fever TECHNIQUE: Single frontal view of the chest is obtained. FINDINGS: The heart size is normal. The pulmonary vasculature is normal. The lungs are clear. IMPRESSION: 1. No acute pulmonary process.
[2017-09-25] MEDS ORDERED: MIDAZOLAM 2 MG/2 ML VIAL IV ONE (16:10)
[2017-09-25] MEDS ORDERED: LIDOCAINE 1% INJ 10MG/ML (20 ML MDV) ONE (16:17)
[2017-09-25 17:00] LABS: Glucose,CSF 82 mg/dL (40-70); Total Protein,CSF 29 mg/dL (12-60)
--- NOTE | 2017-09-25 17:03 | P.PCN ---
Date of Procedure: 09/25/17 Preoperative Diagnosis: Altered Mental Status Postoperative Diagnosis: Altered Mental Status Procedure(s) Performed: Procedure: Lumbar Puncture . Condition: Altered Mental Status, stable. Complications: none. Description of the procedure= patient in the procedure room sitting position and monitors applied, the back prepped with chlorhexidine -3, sterile technique , local infiltration of the skin and subcu interstitial with lidocaine 1% 2 mL, then 22-gauge quickie Needle advanced slowly at L4 5 interlaminar space, the cerebrospinal fluid was clear, and no heme no paresthesia, a total of 10 mL of clear cerebrospinal fluid collected in 4 different tubes, the needle removed , Band-Aid applied , patient tolerated the procedure well without any complications, and further management as per her neurologist Anesthesia: none
[2017-09-25 17:06] LABS: Glucose,Whole Blood 122 mg/dL (75-99)
[2017-09-25 17:24] LABS: Appearance,CSF Clear; CSF Tube Number 2; Nucleated Cells, CSF 2 u/L (0-5); Red Blood Cell, CSF Crenated 20 %; Red Blood Cell, CSF Fresh 80 %; Red Blood Cell,CSF 44 u/L (0-10)
[2017-09-25] MEDS: MELATONIN 3 MG TABLET PO SCH (21:12)
--- NOTE | 2017-09-25 21:26 | PN ---
PROGRESS NOTE DATE OF SERVICE: 09/25/2017 INTERVAL HISTORY: This 27-year-old woman who was admitted with change in mental status and acute metabolic encephalopathy with dysphagia, had a PEG tube placement. The patient also is running some fever. Patient is on broad-spectrum IV antibiotics. The most recent chest x-ray which was done today and reviewed by me showed no acute pulmonary disease. PAST MEDICAL HISTORY: Reviewed. REVIEW OF SYSTEMS: Could not be taken. CURRENT MEDICATIONS ARE: 1. Tylenol p.r.n. 3. Catapres patch. 4. Ativan 1 mg. 5. Melatonin. 6. Tapazole 5 mg p.o. daily. 7. Zosyn 3.75 IV q.8h. 8. Primidone. 9. TPN. PHYSICAL EXAM: Patient is stuporous. Pulse 85, blood pressure 124/61, respirations 20, temperature 97.7, pulse ox 94% on 2 L. HEENT conjunctivae normal. Oral mucosa moist. NECK: No jugular venous distention. No carotid bruit. No lymph node enlargement. CARDIOVASCULAR: S1, S2. RESPIRATORY: Diminished breath sounds at the bases. Scattered rhonchi next. ABDOMEN: Soft. PEG tube in situ. LEGS: No edema. NERVOUS SYSTEM: Diffusely weak. LAB STUDIES: WBC 6.8, hemoglobin 13.2, sodium 146. The valproic acid 42.9. ASSESSMENT: 1. Change in mental status, acute metabolic encephalopathy as well as dysphagia. 2. Status post PEG tube placement. 3. Increased tremors in bilateral extremities. 4. Possible aspiration pneumonia with fever. 5. UTI. 6. Generalized weakness. 8. Hypertension. 9. History of Depakote toxicity. 10.Attention deficit hyperactivity deficit. 11.History of depression. 12.Posttraumatic stress disorder. 13.GERD. 14.Schizophrenia. 15.Hyperthyroidism. RECOMMENDATIONS: Recommend to continue current management, continue symptomatic treatment, continue with antibiotics. I would also recommend continued follow up with Neurology and infectious disease evaluation also may be sought. Keep head of bed elevated to 45 degrees. Tube feeds at 40 cc/hour aspiration precautions. Guarded prognosis because of multiple. Aspiration precautions. Guarded prognosis because of multiple complex medical issues. Further recommendations to follow. MMODL / IJN: [id number] / MTDD
[2017-09-25] MEDS: ACETAMINOPHEN ORAL SUSP (PEDS) 3,840 MG/120 ML BOTTLE PO PRN (23:10)
[2017-09-25 23:48] LABS: Basophils % (A) 0 %; Eosinophils # (A) 0.1 k/uL (0-0.7); Eosinophils % (A) 1 %; HGB 15.2 gm/dL (11.4-16.0); Lymphocytes # (A) 0.4 k/uL (1.0-4.8); Lymphocytes % (A) 8 %; MCH 32.5 pg (25.0-35.0); MCHC 32.9 g/dL (31.0-37.0); MCV 98.9 fL (80.0-100.0); Mean Platelet Volume 8.5; Monocytes # (A) 0.3 k/uL (0-1.0); Monocytes % (A) 5 %; Neutrophils # (A) 4.6 k/uL (1.3-7.7); Neutrophils % (A) 85 %; Platelet Count 166 k/uL (150-450); RBC 4.66 m/uL (3.80-5.40); RDW 13.5 % (11.5-15.5); WBC 5.4 k/uL (3.8-10.6)
[2017-09-25 23:57] LABS: Anion Gap 17 mmol/L; Blood Urea Nitrogen 20 mg/dL (7-17); Calcium 9.9 mg/dL (8.4-10.2); Carbon Dioxide 23 mmol/L (22-30); Chloride 107 mmol/L (98-107); Glucose 172 mg/dL (74-99); Potassium 4.1 mmol/L (3.5-5.1); Sodium 147 mmol/L (137-145)
[2017-09-26 00:20] LABS: Glucose,Whole Blood 147 mg/dL (75-99)
[2017-09-26] MEDS: VALPROATE SODIUM 250 MG in SODIUM CHLORIDE 0.9% 50 ML IVPB SCH ×2 (00:25→08:45)
[2017-09-26] MEDS: HEPARIN SODIUM,PORCINE 5,000 UNIT/ML 1 ML VIAL SQ SCH ×2 (00:27→08:49)
--- NOTE | 2017-09-26 00:41 | XR ---
EXAMINATION TYPE: XR chest 1V portable DATE OF EXAM: 09/26/2017 COMPARISON: 09/25/2017 HISTORY: Possible aspiration TECHNIQUE: Single frontal view of the chest is obtained. FINDINGS: Heart and mediastinum are normal. There is some linear density in the left upper lobe. The re is slight blunting of left costophrenic angle. IMPRESSION: There is new atelectasis in the left upper lobe compared to yesterday. Minimal pleural r eaction at the left lung base. No gross heart failure. Normal heart.
[2017-09-26] MEDS: PIPERACILLIN-TAZOBACTAM 3.375 GM in DEXTROSE/WATER 1 50ML.BAG IVPB SCH ×2 (01:35→11:07)
[2017-09-26] MEDS: MORPHINE SULFATE 4 MG/ML SYRINGE IVP PRN (02:52)
--- NOTE | 2017-09-26 03:41 | CONS ---
CONSULTATION DATE OF SERVICE: 09/25/2017 REASON FOR CONSULTATION: Fever. HISTORY OF PRESENT ILLNESS: The patient is a 27-year-old female who did have a history of developmental delay, currently a [facility] resident. The patient has been admitted to this facility for evaluation of increased tremors and generalized weakness, not having a fever. The patient did have a fever of 100.5 degrees Fahrenheit on admission. For the same reason the patient has been evaluated and admitted. CT of the head has been no convincing evidence of hemorrhage or acute infarct. No hydrocephalus. The patient has some left base atelectasis. The patient subsequently did have a low-grade fever of 100.5 and since then she was afebrile for a few days, but now fever of 99.9 axillary, 100 yesterday with 99.9 axillary today. That did concern the patient's RN and prompted this infectious disease consultation. The patient has been evaluated by Neurology, endocrinology as well as Psychiatry services and psych medication has been adjusted. The patient apparently was walking and talking per the RN. However, has been mostly bed-bound and sleepy and moaning when she is awake and would not provide any history. The patient stopped eating, hence, a PEG tube was placed on the . She was on Rocephin that was switched to Zosyn. All of this information has been obtained from prior review of the chart as the patient is currently moaning and will not provide any history but she does not seem to be in acute distress. REVIEW OF SYSTEMS: Could not be reliably obtained. The positive points have been mentioned in HPI above. PAST MEDICAL HISTORY: Cognitive impairment, developmental delay, syndrome, schizoaffective disorder, ADHD. PAST SURGICAL HISTORY: No surgery. SOCIAL HISTORY: No smoking or drug use. FAMILY HISTORY: No pertinent findings noticed. ALLERGIES: No known drug allergies. MEDICATIONS: Include the patient is currently on Tylenol, Catapres, heparin, Toradol, Ativan, melatonin, Tapazole, morphine sulfate, Zosyn started last evening, valproic acid. EXAMINATION: Blood pressure 124/51 with a pulse of 85, temperature 97.7, she is 95% 2 L nasal cannula. GENERAL DESCRIPTION: A middle-aged female lying in bed in no distress. No tachypnea or accessory muscle of respiration use. HEENT: Shows no pallor or scleral icterus. Oral mucosa is dry. NECK: No thyromegaly or swelling. LUNGS: Unlabored breathing. Clear to auscultation anteriorly. HEART: S1, S2. Regular rate. ABDOMEN: Soft, no tenderness. No organomegaly EXTREMITIES: No edema of feet. SKIN: No rash or mass palpable. Blister on the left big toe. NEUROLOGIC: Patient is awake, moaning. Orientation could not be determined. LABS: Hemoglobin 13.1, white count 6.9 with a BUN of 22, creatinine 0.39. Valproic acid was 42.9. Blood and urine culture done on admission has been negative. DIAGNOSTIC IMPRESSION AND PLAN: Patient with fever without clear source in a patient who did have a workup including a blood and urine culture which have been negative. Chest x-ray was negative with question of possible central fever or related to her psych medication as the patient currently does not look toxic and no clinical focus of infection. [employer] infection is less likely but not entirely excluded in view of had clinical condition. PLAN: 1. We will repeat her septic workup including blood cultures, UA and cultures and chest x-ray. 2. If those are negative we will obtain consult with anesthesia to do an LP. The fluid should be sent for cell count, differential, glucose, protein . 3. Continue with Zosyn at this point while waiting for the culture to finalize. 4. We will follow up on the clinical condition to further adjust medication if needed. Thank you for this consultation. Will follow this patient along with you. MMJOANAL / IJN: [id number] /
[2017-09-26] MEDS: SODIUM CHLORIDE 0.9% 1,000 ML with POTASSIUM CHLORIDE 20 MEQ, MVI, ADULT NO.4 WITH VIT ... IV SCH ×10 (04:29→15:33)
[2017-09-26] MEDS: KETOROLAC 30 MG/ML 1 ML VIAL IVP SCH ×2 (05:06→13:03)
[2017-09-26] MEDS: ACETAMINOPHEN ORAL SUSP (PEDS) 3,840 MG/120 ML BOTTLE PO PRN (05:07)
[2017-09-26 06:09] LABS: Glucose,Whole Blood 172 mg/dL (75-99)
[2017-09-26] MEDS ORDERED: IBUPROFEN ORAL SUSP 100 MG/5 ML CUP PO PRN (06:18)
[2017-09-26] MEDS: METHIMAZOLE 5 MG TAB PO SCH (06:57)
[2017-09-26] MEDS ORDERED: PROPRANOLOL 40 MG TAB PO SCH ×2 (07:47→09:00)
[2017-09-26] MEDS ORDERED: METOPROLOL TARTRATE 5 MG/5 ML VIAL IVP STA ×2 (07:53→08:53)
[2017-09-26] MEDS: PRIMIDONE 50 MG TAB PO SCH (08:49)
[2017-09-26] MEDS: BACITRACIN 500 UNIT/GM OINT 28.4 GM TUBE TOPICAL SCH ×2 (08:51→22:56)
[2017-09-26] MEDS ORDERED: IBUPROFEN ORAL SUSP 2,400 MG/120 ML BOTTLE PO PRN (08:52)
[2017-09-26] MEDS ORDERED: IOPAMIDOL-300 CONTRAST 30 ML VIAL (ORAL USE) PO PRN (10:25)
[2017-09-26 10:29] LABS: Glucose,Whole Blood 206 mg/dL (75-99)
[2017-09-26 11:40] VITALS: BP 146/79
[2017-09-26] MEDS ORDERED: NALOXONE 0.4 MG/ML 1 ML VIAL IV PRN (11:40)
--- NOTE | 2017-09-26 11:47 | CT ---
EXAMINATION TYPE: CT abdomen wo con DATE OF EXAM: 09/26/2017 COMPARISON: NONE HISTORY: Peg tube placement CT DLP: [id number] mGycm Automated exposure control for dose reduction was used. TECHNIQUE: Helical acquisition of images was performed from the lung bases through the top of iliac crest to include entire abdomen. CONTRAST: Performed with Oral Contrast and without IV contrast. FINDINGS: LUNG BASES: There is a small left pleural effusion and bibasilar subsegmental atelectasis. LIVER/GB: Unenhanced liver is grossly unremarkable. Area of free fluid is noted. Cholelithiasis is pr esent with a large lamellated gallstone in the gallbladder fundus. PANCREAS: No significant abnormality is seen. SPLEEN: No significant abnormality is seen. Perisplenic free fluid is noted. ADRENALS: There is slight thickening of the left adrenal gland although it maintains a normal adrenif orm shape likely related to adrenal gland hyperplasia. Right adrenal gland is unremarkable. KIDNEYS: No hydronephrosis or nephrolithiasis. BOWEL: There is malpositioning of the percutaneous enteric gastric tube that is located outside of t he gastric lumen with subsequent moderate degree pneumoperitoneum, small volume free fluid, and extra vasation of contrast contained within the peritoneum. LYMPH NODES: No significant abnormality is appreciated. OSSEOUS STRUCTURES: No significant abnormality is seen. FREE AIR: Moderate degree of pneumoperitoneum is seen likely from the malplaced percutaneous enteric gastric tube. OTHER: Numerous areas of subcutaneous edema and inflammatory fat stranding are likely related to inje ction sites. IMPRESSION: FINDINGS COMPATIBLE WITH MALPOSITION OF THE PERCUTANEOUS ENTERIC GASTRIC TUBE WITH MODERATE DEGREE OF PNEUMOPERITONEUM, ASCITES, AND CONTRAST EXTRAVASATION. Findings were communicating with the ordering surgeon Dr. Iglesias by Dr. Monae at 11:44 AM on 09/26/2017.
--- NOTE | 2017-09-26 12:20 | P.PN ---
Progress Note - Text Progress Note Date: 09/26/17 The CAT scan was reviewed with the radiologist. The patient's PEG tube is outside of the stomach. The patient will be taken for emergent exploratory laparotomy this morning.
--- NOTE | 2017-09-26 12:20 | P.PN ---
Progress Note - Text Progress Note Date: 09/26/17 The patient was transferred to the ICU this morning for changes in her vital signs. She had tachycardia since yesterday. On exam her abdomen is soft obese there is some minimal tenderness at the PEG site. Patient will undergo computed tomography scan of the abdomen to evaluate her PEG site. I'm concerned that she may have dislodged her PEG tube. The patient will undergo stat CAT scan with oral contrast given through the PEG tube.
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
[2017-09-26 13:09] LABS: Glucose,Whole Blood 186 mg/dL (75-99)
[2017-09-26] MEDS ORDERED: NOREPINEPHRIN 4 MG-0.9% NS PMX 4 MG/250 ML ML IV ONE (13:10)
[2017-09-26] MEDS ORDERED: SODIUM CHLORIDE 0.9% 1,000 ML IV ONE (13:33)
[2017-09-26] MEDS ORDERED: NOREPINEPHRIN 4 MG-0.9% NS PMX 4 MG/250 ML ML IV SCH (13:45)
--- NOTE | 2017-09-26 14:03 | P.PN ---
Progress Note - Text Progress Note Date: 09/26/17 The patient was scheduled for emergent exploratory laparotomy. Patient was seen by Dr. Grace of the bottle capping machine operator. He is canceling the procedure and the making the patient DO NOT RESUSCITATE. I explained to him that the patient has a hole stomach related to her PEG tube being dislodged. He feels that she will not survive surgical induction of general anesthesia. The patient laparotomy was canceled.
[2017-09-26 14:16] LABS: Appearance,Urine Cloudy (Clear); Bacteria,Urine Rare /hpf; Bilirubin,Urine Negative (Negative); Blood,Urine Large (Negative); Color,Urine Dark Brown; Glucose,Urine (UA) 1+ (Negative); Ketones,Urine 1+ (Negative); Leukocyte Esterase,Urine Trace (Negative); Mucus,Urine Rare /hpf; Nitrite,Urine Negative (Negative); PH, Urine 5.5 (5.0-8.0); Protein,Urine 2+ (Negative); RBC,Urine >182 /hpf (0-5); Specific Gravity,Urine >1.050 (1.001-1.035); Squamous Epithelial Cell,Urine 1 /hpf (0-4); Urobilinogen,Urine <2.0 mg/dL (<2.0); WBC,Urine 15 /hpf (0-5)
[2017-09-26] MEDS: SODIUM CHLORIDE 0.9% 1,000 ML IV SCH (14:59)
[2017-09-26] MEDS ORDERED: ACETAMINOPHEN IV (For NPO) 1,000 MG in EMPTY BAG 1 BAG IVPB PRN (15:23)
--- NOTE | 2017-09-26 15:30 | PN ---
PROGRESS NOTE DATE OF SERVICE: 09/25/2017. REASON FOR FOLLOWUP: Fever and secondary peritonitis. INTERVAL HISTORY: The patient has spiked a fever of 103 degrees Fahrenheit since last night. The patient did have a CT of abdomen and pelvis completed around midnight, which did show the position of the percutaneous enteric gastric tube with moderate degree of pneumoperitoneum and ascites. Surgery has seen the patient and wanted to take the patient to the OR for urgent laparotomy. However, the patient has been hypotensive with blood pressure currently unrecordable despite being on 35 mics of Levophed. Hogshead Hand has talked to the guardian who is recommending the patient to be NO CODE. The patient is currently lethargic and unable to provide any history. EXAMINATION: Temperature is currently 103.6, pulse of 125, she is 92% on room air. General description is a middle-aged female lying in bed in no distress. Respiratory system: Unlabored breathing, clear to auscultation anteriorly. Heart S1, S2. Regular. ABDOMEN: Soft, distended. LABS: No CBC was done today or a BMP. Troponin was 0.10. DIAGNOSTIC IMPRESSION AND PLAN: Patient with a fever, source is likely secondary peritonitis with dislodgement of the PEG tube. Unfortunately, the patient currently does not have any blood pressure support for her to go to the OR. Guardian has made her NO CODE and to continue with current pressor supports. Comfort care may be more appropriate at which time antibiotic can be safely discontinued. Currently on Zosyn. Guardian was present at bedside. His questions were answered. MMODL / IJN: [id number] /
[2017-09-26] MEDS: MORPHINE SULFATE (100 MG/2 ML) 100 MG in SODIUM CHLORIDE 0.9% 100 ML IV SCH ×2 (15:45→18:42)
--- NOTE | 2017-09-26 19:54 | PN ---
PROGRESS NOTE DATE OF SERVICE: 09/26/2017. This 27-year-old woman was admitted with change in mental status. Also had a PEG tube placement. The patient running tachycardia and having some shortness of breath. The patient was evaluated and the PEG tube is lying outside the stomach and the patient is being considered for exploratory surgery by Dr. Iglesias. Dr. Grace is also following the patient closely. The patient is transferred to ICU at this time. PAST MEDICAL HISTORY: Reviewed. REVIEW OF SYSTEMS: Could not be taken. CURRENT MEDICATIONS: Reviewed and include: Tylenol, Ativan, morphine. PHYSICAL EXAMINATION: Pulse is 126, blood pressure 140/47, respirations 18, temperature 103.2, pulse ox 98% on room air. HEENT: Conjunctivae normal. NECK: No JVD. CARDIAC: S1, S2. RESPIRATORY: Diminished breath sounds at the bases. Bilateral scattered rhonchi and crackles. ABDOMEN: Soft, obese. LEGS: No edema. NERVOUS SYSTEM: Could not be tested completely. LABS: Noted. ASSESSMENT: 1. Change in mental status, possible acute metabolic encephalopathy with dysphagia. 2. Possible abdominal perforation with dislodgement of the PEG tube with possible sepsis. 3. Status post PEG tube placement. 4. Increased tremors in bilateral lower extremities. 5. Possible aspiration pneumonia. 6. Fever. 7. UTI. 8. Generalized weakness. 9. Hypertension. 10.History of Depakote toxicity. 11.ADD/ADHD. 12.History of depression. 13.Posttraumatic stress disorder. 14.GERD. 15.Schizophrenia. 16.Hyperthyroidism. RECOMMENDATION AND DISCUSSION: In this 27-year-old woman admitted with multiple medical problems, at this time the patient was originally scheduled to have surgery but, however, because of deterioration in her condition, the patient is converted to NO CODE at this time. We will continue the rest of the medications and comfort measures will be continued. Prognosis guarded. Further recommendations to follow. MMODL / IJN: [id number] / MTDUgo
[2017-09-26 21:52] VITALS: RESP 26
--- NOTE | 2017-09-26 22:15 | CONS ---
CONSULTATION This is a 27-year-old lady who was seen by me on the telemetry unit and later on she was transferred to the ICU. Her history is remarkable for some developmental delay mentally and she resides in a prison. She has an assigned guardian. She has a schizoaffective ADHD type disorder and also has some seizure disorder as well. Apparently, she came in with altered mentation and also had a PEG tube placed on the . Following the PEG tube at that time, she was not very tachycardic, but somehow she was also found to have a hyperthyroid picture and was started on antithyroid medications in the form of methimazole 5 mg daily by lap checker. However, I was asked to see her for tachycardia in the rate of 120-130 beats per minute. Her thyroid function tests are abnormal. However, in evaluating the patient, I felt that while she was hyperthyroid all along, the tachycardia seems to be a new feature. Given this, there may be another issue going on and with recent PEG tube placement possibility of any abdominal issue should be considered. She is tachycardic. Her fever is high, but she her mentation is also down and spinal tap was also performed yesterday. The tachycardia that is evident is a sinus tachycardia and this is probably related to secondary causes one of which could be thyroid, but there could also be underlying sepsis as a possibility. Because of her thyroid issues, I am recommending Inderal 40 mg t.i.d. to be given and along with antithyroid medications. I will also obtain an echocardiogram as well to assess LV function. If she does not improve clinically, she should be transferred to the ICU and she is already being evaluated by Dr. Grace in this regard. PAST MEDICAL HISTORY: Is remarkable for based on the chart for schizoaffective disorder, seizure disorder, somewhat developmentally challenged and lives in a prison and now has also diagnosis of hyperthyroidism as well. No previous surgeries. MEDICATIONS: At home included: 1. Ativan. 2. Melatonin. 3. Metoprolol. 4. Ceftin. 5. Also takes Depakote. 6. However, here she is on antithyroid medications as well. EXAMINATION: Blood pressure is about 140/70, pulse rate is about 124 per minute. HEENT: Unremarkable. Fundus was not examined by me. NECK: Supple. I cannot appreciate JVD. HEART exam reveals S1, S2 with a tachycardia. No significant murmurs. LUNGS reveal diminished air entry bilaterally. ABDOMEN: Soft. Nontender. Bowel sounds not audible. EXTREMITIES: Lower extremity exam was deferred. EKG revealed a sinus tachycardia. IMPRESSION: 1. Sinus tachycardia could be secondary to hyperthyroidism or any other causes including sepsis or any abdominal issues. 2. Status post PEG placement, rule out any complications secondary to this with tenderness of her abdomen. 3. The patient is developmentally challenged and also has some schizoaffective disorder. RECOMMENDATIONS: From a cardiac standpoint, I believe adding Inderal 40 mg t.i.d. will help for hyperthyroid situation but cause of tachycardia, could also be related to her elevated fever and there may be underlying sepsis and this should also be looked at. Thank you very much for the consult. MMJOANAL / IJN: [id number] /
[2017-09-26 22:52] VITALS: PULSE 136; TEMP 103.9
[2017-09-27] MEDS ORDERED: PANTOPRAZOLE 40 MG/10 ML VIAL IV SCH (09:00)
--- NOTE | 2017-09-29 16:54 | CDI ---
Last Revision, April 2017 Documentation Clarification Form Date: 09/29/17 From: Wendy Angelo RN, CCDS Admit Date: 09/16/2017 9:50:00 PM Patient Name: Diane Mayfield Visit Number: [id number] Discharge Date: ATTENTION: The Clinical Documentation Specialists (CDI) and [facility] Coding Staff appreciate your assistance in clarifying documentation. Please respond to the clarification below the line at the bottom and electronically sign. The CDI & [facility] Coding staff will review the response and follow-up if needed. Please note: Queries are made part of the Legal Health Record. If you have any questions, please contact the author of this message via ITS. Dr. Doris Obrien 09/20/17 Patient became more lethargic, less interactive with difficulty swallowing Sepsis is documentation in your progress note on 09/26/17 History/Risk Factors: Aspiration pneumonia, Cognitive impairment, developemtally delayed, PTSD, ADHD, Schizophrenia Clinical Indicators: Present with weakness and less and less able to take of herself with basic ADL's Patient is tremulous with both of her upper extremities. Generalized weakness and altered mental status, possible urinary tract infection (per H&P) Vital Signs on admission: 166/115 136 18 100.5 WBC/Left Shift 5.5; UA: Ur Leukocyte Esterase Moderate High, urine bacteria , Lactic acid: on admission 1.4 ; 09/26/17 2.5 Blood cultures: no growth Urine cultures no growth Treatment: IV Fluids Rocephin IV NPO Aspiration precautions Monitor labs In your professional opinion, please clarify if these findings signify one of the following conditions, whether the condition is POA, and cause, if known: Condition Sepsis (clarify if POA) Severe Sepsis Septic Shock Other, please specify Unable to determine Present on Admission: Yes No Identify the (suspected) organism_ Link or clarify if there is associated (due to/with): Organ failure Shock SIRS Criteria..2 or more of the following may indicate SIRS: Temperature < 96.8F (36C) or > 101.0F (38.3C) Heart Rate > 90 bpm Respiratory Rate > 20 breaths/min or PaCO2 < 32 mmHg White Blood Cell Count > 12,000 or < 4,000 cells/mm3 or > 10% bands Lactate >2.0 mmol/L (>4.0 is equivalent to septic shock) Please continue to document in your progress notes and discharge summary in order to capture severity of illness and risk of mortality. Include clinical findings that support your diagnosis. sepsis MTDD
--- NOTE | 2017-09-29 17:32 | CDI ---
Last Revision, April 2017 Documentation Clarification Form Date: 09/29/17 From: Wendy Angelo RN, CCDS Admit Date: 09/16/2017 9:50:00 PM Patient Name: Diane Mayfield Visit Number: [id number] Discharge Date: ATTENTION: The Clinical Documentation Specialists (CDI) and [facility] Coding Staff appreciate your assistance in clarifying documentation. Please respond to the clarification below the line at the bottom and electronically sign. The CDI & [facility] Coding staff will review the response and follow-up if needed. Please note: Queries are made part of the Legal Health Record. If you have any questions, please contact the author of this message via ITS. Dr. Cuauhtemoc Iglesias 09/26/[address] Obrien possible abdominal perforation with dislodgement of the PEG tube.. . Patients Admitting Diagnosis: UTI, Mental status changes Post-Operative Diagnosis: Malnutrition Procedure performed: PEG tube placed (09/23/17) History/Risk Factors: Cognitive impairment, development delay, Schizoaffective disorder Clinical Indicators: She developed temperatures up to 102.9 and tachycardia, tachypneic. 09/26/17 vital signs: @10:40 146/79 130 28 103.6 92 % RA CT scan of abdomen on 09/26/17: findings compatible with malposition of the percutaneous enteric gastric tube with moderate degree of pneumoperitoneum, ascites, and contrast extravastion. Treatment: ICU Monitoring Zosyn IV Levophed drip iv Fluid bolus ID Consults: Fever source is likely secondary peritonitis with dislodgement of the PEG tube . In order to accurately reflect this patients severity of illness, please clarify if the post-operative diagnosis perforation with dislodgement of the PEG tube is: An expected post-procedural or post-surgical condition; Integral to the procedure; Inherent to the procedure; An unexpected post-procedural or post-surgical condition related to surgical care; Other, please specify Unable to determine Please continue to document in your progress notes and discharge summary in order to capture severity of illness and risk of mortality. Include clinical findings that support your diagnosis. This was an unexpected condition. It was unclear how the PEG tube was dislodged. The patient may have dislodged the PEG tube herself. Or the PEG tube may have been dislodged patient was rolled on her side for nursing care. ELOINA
--- NOTE | 2017-09-30 06:15 | DS ---
DISCHARGE SUMMARY PRELIMINARY CAUSE OF : Possibly sepsis secondary from dislodgement of the PEG tube and abdominal perforation with possible peritonitis and sepsis. OTHER DIAGNOSES: 1. Change in mental status, possible acute metabolic encephalopathy with dysphagia. 2. Status post PEG tube placement. 3. Increased tremors in the bilateral lower extremities. 4. Possible aspiration pneumonia. 5. Urinary tract infection. 6. Generalized weakness. 7. Hypertension. 8. History of Depakote toxicity. 9. Attention deficit disorder, attention deficit hyperactivity disorder. 10.History of depression. 11.Posttraumatic stress disorder. 12.Gastroesophageal reflux disease. 13.Schizophrenia. 14.Hyperthyroidism. 15.NO CODE, NO CPR, NO VENT. 16.Comfort measures. HISTORY OF PRESENT ILLNESS: This 27-year-old woman with a past medical history of multiple complex medical issues as mentioned earlier being followed by Dr. Kenneth Washburn in the outpatient setting was admitted with change in mental status and possible acute metabolic encephalopathy and dysphagia. The patient had a PEG tube placement per Surgery and the patient continues to be gravely ill and conservative line of management continued. Later the patient was noted to have features of sepsis and the patient was transferred to ICU and the patient was found to have a possible abdominal perforation and dislodgement of the PEG tube. However, the case was discussed with Dr. Grace and the legal guardian and decided to continue with NO CODE, NO CPR and as well as comfort measures because of the patient's baseline medical issues and multiple complex medical issues and extremely high risk of complications. Please refer to the multiple progress notes and consultations and staff notes for details. The patient's condition continues to be extremely guarded throughout the hospital stay and the patient succumbed to her above mentioned illnesses after transition in to comfort measures. MMODL / IJN: [id number] / MTDD
--- NOTE | 2017-10-05 19:43 | DS ---
DISCHARGE SUMMARY ADDENDUM: Please add to: FINAL DIAGNOSES: 1. Septic shock with hypotension. 2. Urinary tract infection present on admission. MMODL / IJN: [id number] /
== END 2017-09-27 03:29 | disposition expired | DRG 689 ==
LOC: EC 21:15 → 4MS4W 21:50 → 6SEL 09-26 01:20 → 6ICU 09-26 10:17 → 4MS4W 09-26 17:59
PROVIDERS: ADMIT Hospitalist; ATTEND Hospitalist
PROC: 0DH63UZ Insertion of Feeding Device into Stomach, Percutaneous Approach (ICD-10-PCS; principal; 2017-09-23 07:30)
PROC: 009U3ZX Drainage of Spinal Canal, Percutaneous Approach, Diagnostic (ICD-10-PCS; 2017-09-25)
DX: N39.0 Urinary tract infection, site not specified (principal); A41.9 Sepsis, unspecified organism; G93.41 Metabolic encephalopathy; J69.0 Pneumonitis due to inhalation of food and vomit; K65.9 Peritonitis, unspecified; R65.21 Severe sepsis with septic shock; J98.11 Atelectasis; R18.8 Other ascites; Z68.41 Body mass index [BMI] 40.0-44.9, adult; K94.29 Other complications of gastrostomy; E05.90 Thyrotoxicosis, unspecified without thyrotoxic crisis or storm; E66.9 Obesity, unspecified; F25.9 Schizoaffective disorder, unspecified; F32.9 Major depressive disorder, single episode, unspecified; F43.10 Post-traumatic stress disorder, unspecified; F79 Unspecified intellectual disabilities; T80.89XA Other complications following infusion, transfusion and therapeutic injection, initial encounter; F90.9 Attention-deficit hyperactivity disorder, unspecified type; F98.8 Other specified behavioral and emotional disorders with onset usually occurring in childhood and adolescence; G40.909 Epilepsy, unspecified, not intractable, without status epilepticus; I10 Essential (primary) hypertension; K21.9 Gastro-esophageal reflux disease without esophagitis; R13.10 Dysphagia, unspecified; R25.1 Tremor, unspecified; E66.3 Overweight; R32 Unspecified urinary incontinence; K66.8 Other specified disorders of peritoneum; Z79.899 Other long term (current) drug therapy; Z87.01 Personal history of pneumonia (recurrent); Z66 Do not resuscitate; Y73.8 Miscellaneous gastroenterology and urology devices associated with adverse incidents, not elsewhere classified; Y92.239 Unspecified place in hospital as the place of occurrence of the external cause
CPT/HCPCS: 43246; 70553; 71045; 74150; 80048; 80164; 81001; 82945; 83605; 84157; 84436; 84439; 84443; 84450; 84460; 84480; 84481; 84484; 84703; 85025; 85610; 85730; 87040; 87070; 87086; 87205; 87529; 89050; 93005; 94760; 99285